=== PATIENT | female | born 1995 | race Caucasian/White ===

== ENCOUNTER 2023-08-05 20:03 | Outpatient (REF) | payer OTHER, SELFPAY ==
[2023-08-08 15:09] LABS: Age Gdln ACOG Testing Note (.); IGP, rfx Aptima HPV ASCU Note (.)
== END 2023-08-05 20:04 | disposition home or self-care (01) ==
LOC: LAB 20:03
PROVIDERS: Visit Provider Physician Assistant
DX: Z01.419 Encounter for gynecological examination (general) (routine) without abnormal findings (principal)
CPT/HCPCS: G0145

== ENCOUNTER 2024-05-02 23:44 | Emergency (ER) | payer OTHER, SELFPAY ==
[2024-05-02 23:53] VITALS: BP 120/87; PULSE 92; TEMP 36.7; O2SAT 98; BMI 26.6
--- OUTSIDE RECORDS SUMMARY | 2024-05-02 23:56 | XMS_ITS | CCD ---
Author Organization [facility] Care Team Providers Care Field Investigator Name Role Phone ARSEN, DR JCAQUES Admitting Unavailable ARSEN, DR JACQUES Attending Unavailable REQUEST, NONE LISTED Primary Care Unavaila ble ARSEN, DR JACQUES Consulting Unavailable ZIEBER, DR FERNANDA Molina Consulting Unavailable ARSEN, DR JACQUES Admitting Unavailable ARSEN, DR JACQUES Attending Unavailable REQUEST, DR FLYNN LISTED Primary Care Unavaila ble ARSEN, DR JACQUES Consulting Unavailable ARSEN, DR JACQUES Admitting Unavailable ARSEN, DR JACQUES Attending Unavailable REQUEST, DR FLYNN LISTED Primary Care Unavaila ble ARSEN, DR JACQUES Consulting Unavailable ARSEN, DR JACQUES Admitting Unavailable ARSEN, DR JACQUES Attending Unavailable REQUEST, DR FLYNN LISTED Primary Care Unavaila ble ARSEN, DR JACQUES Consulting Unavailable ARSEN, DR JACQUES Admitting Unavailable ARSEN, DR JACQUES Attending Unavailable REQUEST, NONE LISTED Primary Care Unavaila ble ARSEN, DR JACQUES Consulting Unavailable ZIEBER, DR FERNANDA Molina Consulting Unavailable ARSEN, DR JACQUES Admitting Unavailable ARSEN, DR JACQUES Attending Unavailable REQUEST, NONE LISTED Primary Care Unavaila ble ARSEN, DR JACQUES Consulting Unavailable ARSEN, DR JACQUES Procedure Practitioner Unavailab le ARSEN, DR JACQUES Admitting Unavailable ARSEN, DR JACQUES Attending Unavailable REQUEST, NONE LISTED Primary Care Unavaila ble KARASIK, DR OLGUIN Admitting Unavailable KARASIK, DR OLGUIN Attending Unavailable REQUEST, NONE LISTED Primary Care Unavaila ble KARASIFiona, DR OLGUIN Consulting Unavailable [place] Primary Care Physician LESLIE RUSSELL Attending Unavailable LESLIE RUSSELL Attending Unavailable YVONNE, LESLIE Attending Unavailable YVONNE, LESLIE Attending Unavailable YVONNE, LESLIE Attending Unavailable YVONNE, LESLIE Attending Unavailable YVONNE, LESLIE L Attending Unavailable YVONNE, LESLIE L Admitting Unavailable Stoney Prescott Attending Unavailable Edvin Engel Attending Unavailable Georgie LOYOLA Referring Unavailable Georgie LOYOLA R Attending Unavailable Georgie LOYOLA R Admitting Unavailable DO Wilfrid Reilly Attending Unavailable Medications Current Medications Medication Drug Class(es) Dates Sig (Normalized) Sig (Original) brompheniramine maleate 0.4 mg/ml / dextromethorphan hydrobromide 2 mg/ml / pseudoephedrine hydrochloride 6 mg/ml oral solution (2 sources) alpha-Adrenergic Agonist, Uncompetitive Y-wgmdjb-I-aspartat e Receptor Antagonist, Sigma-1 Agonist Start: 07-20-2023 take 5 mL by mouth four times daily Bromfed DM oral syrup 5 mL, Oral, QID for cold symptoms, 200 mL, Refill(s) 0, [facility], 162, cm, 07/20/23 13:30:00 EST, Height/Length Dosing, 89.7, kg, 07/20/23 13:30:00 EST, Weight Dosing Start Date: 07/20/23 Status: Ordered citalopram 40 mg oral tablet (4 sources) Serotonin Reuptake Inhibitor Start: 11-11-2022 take 1 tablet by mouth once daily CeleXA 40 mg Tab 40 mg = 1 tab(s), Oral, Daily, Refills(s) 0 Start Date: 11/11/22 Status: Ordered ibuprofen 800 mg oral tablet (1 source) Nonsteroidal Anti-inflammatory Drug Start: 07-22-2022 take 1 tablet by mouth every eight hours as needed for pain ibuprofen 800 mg Tab 800 mg = 1 tab(s), Oral, q8hr, PRN as needed for pain, # 21 tab(s), Refills(s) 0, Pharmacy: [facility], 160, cm, 07/22/22 19:15:00 EST, Height/Length Dosing, 75, kg, 07/22/22 19:15:00 EST, Weight Dosing Start Date: 07/22/22 Status: Ordered ondansetron 4 mg disintegrating oral tablet (2 sources) Serotonin-3 Receptor Antagonist Start: 07-22-2022 take 1 tablet by mouth every six hours as needed for nausea ondansetron 4 mg Dis Tab 4 mg = 1 tab(s), Oral, q6hr, PRN Nausea/Vomiting, # 10 tab(s), Refills(s) 0, Pharmacy: [facility], 160, cm, 07/22/22 19:15:00 EST, Height/Length Dosing, 75, kg, 07/22/22 19:15:00 EST, Weight Dosing Start Date: 07/22/22 Status: Ordered Start: 02-05-2021 take 1 tablet by kingsley th four times daily as needed for nausea Zofran ODT 4 mg Tab 4 mg = 1 tab(s), Oral, QID, PRN Nausea/Vomiting, # 12 tab(s), Refills(s) 0 Start Date: 02/05/21 Status: Ordered penicillin v potassium 500 mg oral tablet (1 source) Start: 11-11-2022 End: 11-21-2022 take 1 tablet by mouth twice daily penicillin V potassium 500 mg Tab 500 mg = 1 tab(s), Oral, BID, X 10 day(s), # 20 tab(s), Refills(s) 0, Pharmacy: [facility], 160, cm, 11/11/22 14:23:00 EST, Height/Length Dosing, 78.9, kg, 11/11/22 14:23:00 EST, Weight Dosing Start Date: 11/11/22 Stop Date: 11/21/22 Status: Ordered predniSONE 50 mg oral tablet (1 source) Start: 07-20-2023 End: 07-27-2023 take 1 tablet by mouth once daily predniSONE 50 mg Tab 50 mg = 1 tab(s), Oral, Daily, X 7 day(s), # 7 tab(s), Refills(s) 0, Pharmacy: [facility], 162, cm, 07/20/23 13:30:00 EST, Height/Length Dosing, 89.7, kg, 07/20/23 13:30:00 EST, Weight Dosing Start Date: 07/20/23 Stop Date: 07/27/23 Status: Ordered Completed/Discontinued Medications Medication Drug Class(es) Dates Sig (Normalized) Sig (Original) naproxen 500 mg oral tablet (1 source) Nonsteroidal Anti-inflammatory Drug Start: 01-24-2021 take 1 tablet by mouth twice daily naproxen 500 mg Tab 500 mg = 1 tab(s), Oral, BID, Take one tab by mouth two times a day, # 14 tab(s), Refills(s) 0, Pharmacy: [facility], 163, cm, 01/24/21 16:44:00 EDT, Height/Length Dosing, 77.5, kg, 01/24/21 16:44:00 EDT, Weight Dosing Start Date: 01/24/21 Status: Ordered Problems Active Problems Problem Classification Problem Date Documented Date Episodic/Chronic Abdominal pain (1 source) Abdominal pain; Translations: [Unspecified abdominal pain] Onset: 01-07-2024 Episodic Anxiety disorders (1 source) Anxiety disorder, unspecified; Translations: [ANXIETY DISORDER UNSPECIFIED] Onset: 02-20-2022 Chronic Chronic obstructive pulmonary disease and bronchiectasis (1 source) Bronchitis; Translations: [Bronchitis, not specified as acute or chronic] Onset: 07-20-2023 Episodic Headache; including migraine (6 sources) Migraine; Translations: [Migraine, unspecified, not intractable, without status migrainosus] Onset: 07-22-2022 Chronic Intestinal infection (5 sources) Clostridioides difficile infection 04-21-2014 Episodic Menstrual disorders (4 sources) Irregular menstruation, unspecified; Translations: [IRREGULAR MENSTRUATION UNSPECIFIED] Onset: 08-10-2021 Chronic Nausea and vomiting (1 source) Nausea; Translations: [Nausea] Onset: 07-22-2022 Episodic OB-related trauma to perineum and vulva (1 source) Other specified trauma to perineum and vulva; Translations: [OTHER SPEC TRAUMA PERINEUM AND VULVA] Onset: 02-20-2022 Episodic Other complications of ; puerperium affecting management of mother (1 source) Other mental disorders complicating childbirth; Translations: [OTH MENTAL D/O COMP CHILDBIRTH] Onset: 02-20-2022 Episodic Other complications of (2 sources) Other mental disorders complicating , third trimester; Translations: [OTH MENTAL D/O COMP PREG THIRD TRI] Onset: 02-12-2022 Episodic Other complications of (4 sources) Other specified related conditions, third trimester; Translations: [OTH SPEC PREG RELATED COND 3RD TRI] Onset: 11-29-2021 Episodic Other complications of (5 sources) Maternal tobacco use 05-12-2020 Episodic Other nutritional; endocrine; and metabolic disorders (4 sources) Body mass index 30+ - obesity 11-11-2022 Chronic Other and delivery including normal (5 sources) Single live ; Translations: [Encounter for supervision of normal , unspecified, second trimester] Onset: 10-04-2021 Episodic Other screening for suspected conditions (not mental disorders or infectious disease) (9 sources) Encounter for screening for Streptococcus B; Translations: [Encounter for screening for diabetes mellitus] Onset: 10-31-2021 Episodic Other upper respiratory disease (2 sources) Pain in throat 07-20-2023 Episodic Other upper respiratory infections (5 sources) Streptococcal sore throat; Translations: [Streptococcal pharyngitis] Onset: 11-11-2022 Episodic Residual codes; unclassified (1 source) 39 weeks gestation of ; Translations: [39 WEEKS GESTATION OF ] Onset: 02-20-2022 Episodic Residual codes; unclassified (1 source) Unspecified blood type, Rh negative; Translations: [UNSPECIFIED BLOOD TYPE RH NEGATIVE] Onset: 12-01-2021 Episodic Residual codes; unclassified (1 source) 28 weeks gestation of ; Translations: [28 WEEKS GESTATION OF ] Onset: 12-01-2021 Episodic Screening and history of mental health and substance abuse codes (1 source) Personal history of nicotine dependence; Translations: [PERSONAL HISTORY OF NICOTINE DEPEND] Onset: 02-20-2022 Episodic Substance-related disorders (5 sources) Smoker 02-21-2015 Chronic Comment on above: Added secondary to d ocumentation in Social History. Unclassified (1 source) CONTACT W/AND (SUSP) EXPOS COVID-19; Translations: [CONTACT W/AND (SUSP) EXPOS COVID-19] Onset: 02-20-2022 Urinary tract infections (5 sources) Lower urinary tract infectious disease 04-21-2014 Episodic Past or Other Problems Problem Classification Problem Date Documented Date Episodic/Chronic Immunizations and screening for infectious disease (2 sources) Encounter for screening for infections with a predominantly sexual mode of transmission; Translations: [Encounter for screening for human papillomavirus (HPV)] Onset: 10-31-2021 Episodic Other female genital disorders (4 sources) Other specified noninflammatory disorders of vagina; Translations: [OTH SPEC NONINFLAMMATORY D/O VAGINA] Onset: 10-30-2021 Episodic Unclassified (10 sources) Onset: 07-10-2015 Resolved: 08-15-2020 05-12-2016 Results Test Name Value Interpretation Reference Range Facility C Urineon 01-09-2024 Bacteria identified Cx Nom (U) Microbiology PROCEDURE: Urine Culture [R1] SOURCE: U CleanCatch BODY SITE: COLLECTED DATE/TIME: 01/07/2024 22:06 EDT RECEIVED DATE/TIME: 01/07/2024 22:48 EDT START DATE/TIME: 01/07/2024 22:48 EDT FREE TEXT SOURCE: Stoney Prescott DO, DO, Noah S. FINAL REPORTS Final Report [] Verified Date/Time: 01/09/2024 08:58 EDT 1,000 cfu/ml Mixed skin contaminants Performing Locations R1: This test was performed at: [facility], [address] [place] [address], [employer] , , [facility] Comment on above: Performed By: #### 2 [id number] ####[facility] [id number] [place] [address] CT Abdomen/Pelvis w/ Contras ton 01-08-2024 CT Abdomen/Pelvis w/ Contrast Exam Date/Time: 01/07/2024 22:50 EDT Reason for Exam: Abdominal pain, acute, nonlocalized;Other (please specify) Report IMPRESSION: APPROXIMATELY 2.5 CM PROBABLE LEFT CORPUS LUTEUM CYST. TRACE LOW-DENSITY FREE FLUID IN THE PELVIS, WHICH IS PROBABLY REACTIVE/PHYSIOLOGIC . NO OTHER FINDINGS OF CONCERN IDENTIFIED. EXAM: CT Abdomen/Pelvis w/ Contrast DATE: 01/07/2024 10:32 PM CLINICAL HISTORY: Abdominal pain, acute, nonlocalized. COMPARISON: None available. TECHNIQUE: Spiral imaging was obtained of the abdomen and pelvis after the uneventful infusion of approximately 100 mL of Isovue [address] scans at this facility use dose modulation, iterative reconstruction, and/or weight based dosing when appropriate to reduce radiation dose to as low as reasonably achievable. Unless otherwise stated, incidental findings identified in this report do not require routine follow-up imaging. FINDINGS: Liver: No enlargement, significant fatty infiltration, suspicious mass or lesion. Biliary: The gallbladder is unremarkable. No abnormal biliary ductal dilatation. Pancreas: No mass, organized fluid collection, or abnormal pancreatic ductal dilatation. Spleen: Unremarkable. Adrenals: Unremarkable. Kidneys: No hydronephrosis, significant urinary tract calculi, or suspicious mass. GI tract: No abnormal dilation or wall thickening. Normal appendix. Lymph nodes: No pathologically enlarged lymph nodes. Mesentery/peritoneum : No ascites or mass. Retroperitoneum: No inflammatory changes or mass. Pelvis: Approximately 2.5 x 1.5 cm crenulated left ovarian cyst. Trace low-density free fluid in the pelvis. IUD within an otherwise unremarkable-appeari ng uterus. The right adnexa and urinary bladder are unremarkable. No inflammatory changes or suspicious mass. Vasculature: No aneurysm or dissection. Musculoskeletal: No acute osseous findings. Lower thorax: Noncontributory. Report Ordering Provider: Stoney Prescott FINAL REPORT Dictated: 01/08/2024 10:15 am Jeff Sanchez MD Signed (Electronic Signature): 01/08/2024 10:15 am Signed by: Jeff Sanchez MD Transcribed by: MICHAEL Technologist: ALEJANDRINA Technical Comments GFR (mL/min/1/73m2) n/a age Contrast: Isovue 300 Contrast amount in ml's: 100 Rectal Contrast Given? No Normal [facility] Discharge Instructionson Discharge Instructions [id number] #[id number] Normal [facility] ED Clinical Summaryon 2023 ED Clinical Summary [place] [id number] ED Clinical Summary Person Information Name: CAITLYN SCHRADER/[facility] Age: 28 Years : 1995 Sex: Female Language: Ethiopian PCP: Leslie Lake DO Marital Status: Single Phone: [phone] Visit Id: Visit Reason: Abdominal pain; RT SIDE PAIN Speciality: Acuity: 3 Enc Type: Emergency Med Service: Emergency Arrival: 01/07/2024 20:54:35 Discharge: 01/07/2024 23:44:32 LOS: 000 02:50 Checkin: 01/07/2024 20:54:35 Checkout: 01/07/2024 23:44:32 Dispo Type: Home (Routine DC) EVENTS: Event Name Event Status Request Date/Time Start Date/Time Complete Date/Time Arrive Complete 01/07/2024 20:54:35 01/07/2024 20:54:35 01/07/2024 20:54:35 Document Home Meds Request 01/07/2024 20:54:35 Triage Complete 01/07/2024 20:54:35 01/07/2024 21:06:21 01/07/2024 21:06:21 Registration Complete 01/07/2024 20:57:49 01/07/2024 20:57:49 01/07/2024 20:57:49 Reg Complete Request 01/07/2024 20:57:49 Reg Bed Request Complete 01/07/2024 20:57:49 01/07/2024 20:57:49 01/07/2024 20:57:49 Bed Assign Complete 01/07/2024 21:02:59 01/07/2024 21:02:59 01/07/2024 21:02:59 Dr Exam Complete 01/07/2024 21:02:59 01/07/2024 21:15:35 01/07/2024 21:15:35 RN Exam Complete 01/07/2024 21:02:59 01/07/2024 21:20:16 01/07/2024 21:20:16 Isolation Screening Request 01/07/2024 21:06:22 Pending Labs Complete 01/07/2024 21:10:18 01/07/2024 22:30:08 Lab Complete 01/07/2024 21:10:18 01/07/2024 22:28:11 Patient Care Complete 01/07/2024 21:10:18 01/07/2024 22:18:07 Urine Collect Complete 01/07/2024 21:10:18 01/07/2024 22:28:11 Registration Complete 01/07/2024 21:15:35 01/07/2024 22:11:14 01/07/2024 22:11:14 Meds Admin Complete 01/07/2024 21:18:26 01/07/2024 21:53:25 CT Complete 01/07/2024 21:18:26 01/07/2024 22:32:31 01/07/2024 22:50:07 Pending Labs Complete 01/07/2024 21:27:21 01/07/2024 21:27:21 01/07/2024 21:51:44 Lab Complete 01/07/2024 21:27:21 01/07/2024 21:27:21 01/07/2024 21:51:44 Pending Labs Complete 01/07/2024 21:27:39 01/07/2024 21:27:39 01/07/2024 21:27:39 Pending Labs Inlab 01/07/2024 22:30:09 01/07/2024 22:30:09 Lab Inlab 01/07/2024 22:30:09 01/07/2024 22:30:09 Meds Admin Complete 01/07/2024 23:34:30 01/07/2024 23:42:35 Discharge Complete 01/07/2024 23:38:32 01/07/2024 23:44:37 01/07/2024 23:44:37 Transfer Complete 01/07/2024 23:44:37 01/07/2024 23:44:37 01/07/2024 23:44:37 ADDRESS: [address] [facility] [id number] PHYS DOC NOTES: MEDICAL INFORMATION: Prescriptions Given: Medications to Continue with No Changes Other Medications brompheniramine/dext romethorphan/PSE (Bromfed DM oral syrup) 5 Milliliter By Mouth 4 times a day as needed for cold symptoms. Refills: 0. PATIENT EDUCATION INFORMATION: Instructions: Abdominal Pain, Adult Follow up: With: Address: When: Leslie Maria, [address] [place] [address] Business (1) In 3 days DIAGNOSIS: AP (abdominal pain) Normal [facility] ED Note-Physicianon 05-01-20 24 ED Note-Physician Basic Information Time Seen: Stoney Prescott DO 01/07/2024 21:15 Chief Complaint Pt arrives to ed with c/o right sided pain that started approx an hour ago. History of Present Illness HPI: Patient is a 28-year-old female with past medical history of migraines who presents the ED for abdominal pain. Patient states this for started approximately 1 hour ago and has been constant since that time. She states that it is in the right side of her abdomen both the upper and lower aspects. She states that she feels bloated with this. She states that just now she is starting to become nauseous and also is breaking out into a sweat with chills. She denies any change in bowel movements. She denies any urinary symptoms. She has never had anything like this in the past. ROS: Pertinent review of systems conducted and is negative except as noted above. Physical exam: General: Mildly diaphoretic but in no distress HEENT: Mucous membranes moist Neuro: awake and alert Neck: supple, trachea midline Card: Heart regular rate and rhythm no murmur Resp: Lungs clear to auscultation no wheeze or rhonchi Abd: Soft and nondistended. Right upper quadrant and right lower quadrant tenderness without rebound or guarding. No CVA tenderness. Ext: No gross deformity or edema Physical Exam Vitals & Measurements T: 37.1 ?C(Tympanic) HR: 105(Peripheral) RR: 16 BP: 117/87 SpO2: 98% HT: 160.02 cm WT: 69.3 kg BMI: 27.06 Medical Decision Making MEDICAL DECISION MAKING Number and Complexity of Problems Differential Diagnosis: [] [facility] Data External documents reviewed: N/A My EKG interpretation: Noted in chart if applicable My CT interpretation: N/A My X-ray interpretation: Noted in chart if applicable My Ultrasound interpretation: N/A Decision rules/scores evaluated: N/A Discussed with: N/A Treatment and Disposition ED Course: Patient is mildly diaphoretic but an overall nontoxic-appearing. She has tenderness in her right upper and lower abdomen without peritonitis. Will obtain a CT of the abdomen pelvis as well as workup and give her a dose of Toradol for comfort as well as Zofran for nausea. Blood work is overall reassuring. Urine shows no overt sign of infection. CT of the abdomen pelvis shows trace pelvic fluid is nonspecific but may reflect rupture of an ovarian cyst or follicle. A peripherally enhancing left-sided corpus luteal cyst measures 2.5 cm. The solid organs demonstrate no acute findings. Equivocal mild intrahepatic biliary ductal dilation noted without common bile duct dilation. Would recommend correlation with symptoms and bilirubin levels. The pattern of hypodensity is more compatible with biliary ductal dilation and periportal edema. Normal gallbladder. No evidence for appendicitis. On examination the patient is feeling better. We discussed the results of her lab work and imaging. At this time I feel she is stable for discharge with close follow-up with her primary care physician. We discussed return precautions. Patient was discharged stable condition. Shared decision making: As above Code status: N/A Assessment/Plan AP (abdominal pain) (R10.9: Unspecified abdominal pain) Orders: ketorolac, 15 mg = 1 mL, Injection, IV Push, Once, Stop date 01/07/24 21:17:00 EDT, STAT, Start date 01/07/24 21:17:00 EDT, 01/07/24 21:17:00 EDT ketorolac, 15 mg = 1 mL, Injection, IV Push, Once, Stop date 01/07/24 23:34:00 EDT, STAT, Start date 01/07/24 23:34:00 EDT, 01/07/24 23:34:00 EDT ondansetron, 4 mg = 2 mL, Injection, IV Push, Once, Stop date 01/07/24 21:17:00 EDT, STAT, Start date 01/07/24 21:17:00 EDT, 01/07/24 21:17:00 EDT Sodium Chloride 0.9% intravenous solution, 1,000 mL, Soln-IV, IV, Once, Stop date 01/07/24 21:17:00 EDT, STAT, Start date 01/07/24 21:17:00 EDT, Infuse over 61, minute(s) Basic Metabolic Panel CBC w/ Auto Diff CT Abdomen/Pelvis w/ Contrast eGFR Extra Blue Tube Hepatic Function Panel Lipase Level Saline Lock Insert U Beta Hcg Qual UA with Cult Rflx Urine Culture Medications Administered Given NS 1000 ml Bolus, 1000 mL, IV Disposition Plan Discharge Prescription List Prescriptions No active prescription medications Follow-up With When Contact Information Leslie [place] In 3 days [address] [place] [address]- Business (1) Additional Instructions: Patient Education Abdominal Pain, Adult Problem List/Past Medical History Ongoing Blood type, Rh negative BMI 30.0-30.9,adult Smoker Strep throat UTI (lower urinary tract infection) Historical MIGRAINE Procedure/Surgical History Extraction of wisdom tooth. Medications Inpatient ketorolac 15 mg/mL Inj, 15 mg= 1 mL, IV Push, Once NS 1000 ml Bolus, 1000 mL, IV, Once Zofran 4 mg/2 mL Injection, 4 mg= 2 mL, IV Push, Once Home Bromfed DM oral syrup, 5 mL, Oral, QID, PRN CeleXA 40 mg Tab, 40 mg= 1 tab(s), Oral, Daily Allergies No Known Allergies Social (more content not included)... Normal [facility] Comment on above: Result Comment: Elec tronically Signed By: Stoney Prescott DO\.br\Date and Time Signed: 01/07/24 23:38 EDT ED Patient Education Noteon 01-08-2024 ED Patient Education Note Gastroenterology Abdominal Pain, Adult Pain in the abdomen (abdominal pain) can be caused by many things. Often, abdominal pain is not serious and it gets better with no treatment or by being treated at home. However, sometimes abdominal pain is serious. Your health care provider will ask questions about your medical history and do a physical exam to try to determine the cause of your abdominal pain. Follow these instructions at home: Medicines ? Take nqbc-gjk-lfypzax and prescription medicines only as told by your health care provider. ? Do not take a laxative unless told by your health care provider. General instructions ? Watch your condition for any changes. ? Drink enough fluid to keep your urine pale yellow. ? Keep all follow-up visits as told by your health care provider. This is important. Contact a health care provider if: ? Your abdominal pain changes or gets worse. ? You are not hungry or you lose weight without trying. ? You are constipated or have diarrhea for more than 2?3 days. ? You have pain when you urinate or have a bowel movement. ? Your abdominal pain wakes you up at night. ? Your pain gets worse with meals, after eating, or with certain foods. ? You are vomiting and cannot keep anything down. ? You have a fever. ? You have blood in your urine. Get help right away if: ? Your pain does not go away as soon as your health care provider told you to expect. ? You cannot stop vomiting. ? Your pain is only in areas of the abdomen, such as the right side or the left lower portion of the abdomen. Pain on the right side could be caused by appendicitis. ? You have bloody or black stools, or stools that look like tar. ? You have severe pain, cramping, or bloating in your abdomen. ? You have signs of dehydration, such as: ? Dark urine, very little urine, or no urine. ? Cracked lips. ? Dry mouth. ? Sunken eyes. ? Sleepiness. ? Weakness. ? You have trouble breathing or chest pain. Summary ? Often, abdominal pain is not serious and it gets better with no treatment or by being treated at home. However, sometimes abdominal pain is serious. ? Watch your condition for any changes. ? Take scph-zuw-dzegfil and prescription medicines only as told by your health care provider. ? Contact a health care provider if your abdominal pain changes or gets worse. ? Get help right away if you have severe pain, cramping, or bloating in your abdomen. This information is not intended to replace advice given to you by your health care provider. Make sure you discuss any questions you have with your health care provider. Document Revised: 10/14/2020 Document Reviewed: 01/04/2020 [employer] Patient Education ? 2022 [employer] Normal [facility] ED Patient Summaryon 024 ED Patient Summary [place] [id number] Patient Discharge Instructions Person Information Name: CAITLYN SCHRADER Age: 28 Years Arrival Date: 01/07/2024 20:54:35 Discharge Diagnosis: AP (abdominal pain) Primary Care Physician: Leslie [place] DO Provider Information Primary Provider: Stoney Prescott DO Advanced Cripple Worker:None The exam and treatment you received in the Emergency Department were for an urgent problem and are not intended as complete care. It is important that you follow up with a doctor, nurse practitioner, or physician?s gallery assistant for ongoing care. If your symptoms become worse or you do not improve as expected and you are unable to reach your usual health care provider, you should return to the Emergency Department. We are available 24 hours a day. CAITLYN SCHRADER has been given the following list of patient education materials, prescriptions and follow-up instructions: Follow-up Instructions: With: Address: When: [place] [address], [facility] C, [facility] [address] [place] [address] [facility] (1) In 3 days In the event that this physician does not participate in your insurance network, please consult with your insurance company to find a nearby participating provider. Patient Education Materials: Abdominal Pain, Adult A MESSAGE TO ALL PATIENTS REGARDING OPIOIDS PRESCRIPTION OPIOIDS: WHAT YOU NEED TO KNOW Prescription opioids can be used to help relieve himprfch-sg-szajlz pain and are often prescribed following a surgery or injury, or for certain health conditions. These medications can be an important part of the treatment but also come with serious risks. It is important to work with your healthcare provider to make sure you are getting the safest, most effective care. WHAT ARE THE RISKS AND SIDE EFFECTS OF OPIOID USE? Prescription opioids carry serious risks of addiction and overdose, especially with prolonged use. An opioid overdose, often marked by slowed breathing, can cause sudden . The use of prescription opioids can have a number of side effects as well, even when taken as directed: ? Tolerance?meaning you might need to take more of the medication for the same pain relief ? Physical dependence?meaning you have symptoms of withdrawal when a medication is stopped ? Increased sensitivity to pain ? Constipation ? Nausea, vomiting, and dry mouth ? Sleepiness and dizziness ? Confusion ? Depression ? Low levels of testosterone that can result in lower sex drive, energy, and strength ? Itching and sweating RISKS ARE GREATER WITH: ? History of drug misuse, substance use disorder, or overdose ? Mental health conditions (such as depression or anxiety) ? Sleep apnea ? Older age (65 years and older) ? Avoid alcohol while taking prescription opioids. Also, unless specifically advised by your health care provider, medications to avoid include: ? Benzodiazepines (such as Xanax or Valium) ? Muscle relaxants (such as Soma or Flexeril) ? Hypnotics (such as Ambien or Lunesta) ? Other prescription opioids KNOW YOUR OPTIONS Talk to your health care provider about ways to manage your pain that don?t involve prescription opioids. Some of these options may actually work better and have fewer risks and side effects. Options may include: ? Pain relievers such as acetaminophen, ibuprofen, and naproxen ? Some medication that are also used for depression or seizures ? Physical therapy and exercise ? Cognitive behavioral therapy, a psychological, goal-directed approach, in which patients learn how to modify physical, behavioral, and emotional triggers of pain and stress. IF YOU ARE PRESCRIBED OPIOIDS FOR PAIN: ? Never take opioids in greater amounts or more often than prescribed. ? Follow up with your primary health care provider. o Work together to create a plan on how to manage your pain. o Talk about ways to help manage your pain that don?t involve prescription opioids. o Talk about any and all concerns and side effects. ? Help prevent misuse and abuse o Never sell or share prescription opioids. o Never use another person?s prescription opioids. ? Store prescription opioids in a secure place and out of reach of others (this may include visitors, children, friends, and family). ? Safely dispose of unused prescription opioids: Find your community drug take-back program or your pharmacy mail-back program, or flush them down the toilet, following guidance from the Food and Drug Administration (www.fda.gov/Drugs/R esourcesForYou). ? Visit www.cdc.gov/drugover dose to learn about the risks of opioids abuse and overdose. ? If you believe you may be struggling with addiction, tell your health daycare provider and ask for guidance or call [facility] National Helpline at 6-498-422-HELP. v Source: [place] Department of Health (more content not included)... Normal [facility] RAD - Preliminary Cat Scan R eporton 01-08-2024 RAD - Preliminary Cat Scan Report [id number] #1.00TIFF Normal [facility] U BetaHcg Qualon 01-08-2024 HCG.beta subunit (U) [Moles/Vol] Negative Normal [facility] Comment on above: Performed By: #### 2 519809, [id number], [id number] ####[facility] [address] [place] [address] UA with Cult Rflxon 01-08-20 24 Bilirubin Ql (U) Negative Normal Negative [facility] Comment on above: Performed By: #### 2 903352, 86377165, [id number] ####[facility] [address] [place] [address] Clarity (U) Clear Normal Clear [facility] Comment on above: Performed By: #### 2 786489, 20749467, [id number] ####[facility] [address] [place] [address] Color (U) Light-Yellow Normal Yellow [facility] Comment on above: Result Comment: Micr oscopic readings are only performed on those samples that meet specific criteria set forth by [facility] Laboratory. Performed By: #### 2 101649, 00412832, [id number] ####[place] [id number] Epithelial cells.squamous Auto (Urine sed) [#/Area] 5-8 Abnormal 0-2 [facility] Comment on above: Performed By: #### 2 024927, 64061233, [id number] ####[facility] [address] [place], [place] [address] Glucose Ql (U) Negative Normal Negative [facility] Comment on above: Performed By: #### 2 930273, 48183619, [id number] ####[facility] [address] [place] [address] Hemoglobin Auto test strip (U) [Mass/Vol] Negative Normal Negative [facility] Comment on above: Performed By: #### 2 249867, 05553934, [id number] ####[address] [address] Ketones Auto test strip Ql (U) Trace Abnormal Negative [facility] Comment on above: Performed By: #### 2 304576, 92138246, [id number] ####[address] [address] Leukocyte esterase Auto test strip Ql (U) 25 Erica/uL Normal Negative [facility] Comment on above: Performed By: #### 2 869718, 79110663, [id number] ####[facility] [address] [place] [address] Mucus Auto Ql (U) Trace Normal Negative [facility] Comment on above: Performed By: #### 2 049090, 71819452, [id number] ####[facility] [address] [place] [address] Nitrite Auto test strip Ql (U) Negative Normal Negative [facility] Comment on above: Performed By: #### 2 392120, 03362852, [id number] ####[address] [address] pH (U) 7.0 [pH] Invalid Interpretation Code 5.0-9.0 [facility] Comment on above: Performed By: #### 2 148238, 07571660, [id number] ####[facility] [address] [place] [address] Protein Ql (U) Trace Abnormal Negative [facility] Comment on above: Performed By: #### 2 556145, 56822545, [id number] ####[facility] [address] [place] [address] RBC Ql (U) 0-3 Normal 0-3 [facility] Comment on above: Performed By: #### 2 275616, 82805540, [id number] ####[facility] [address] [place], [place] [address] Specific gravity (U) [Rel density] 1.024 Invalid Interpretation Code 1.005-1.030 [facility] Comment on above: Performed By: #### 2 446401, 02683693, [id number] ####[facility] [address] [place] [address] Urobilinogen (U) [Mass/Vol] Negative Normal Negative [facility] Comment on above: Performed By: #### 2 684735, 78351615, [id number] ####[facility] [address] [place] [address] WBC Auto (Urine sed) [#/Area] 6-15 Abnormal 0-5 [facility] Comment on above: Performed By: #### 2 659012, 67760107, [id number] ####[facility] [address] [place] [address] BMPon 01-07-2024 Anion gap [Moles/Vol] 15 mmol/L Normal 6-16 [facility] Comment on above: Performed By: #### 2 575422, 6139437, 28969778, 5997403, 6785472 ####[facility] [address] [place] [address] Calcium [Mass/Vol] 9.4 mg/dL Normal 8.9-11.1 [facility] Comment on above: Performed By: #### 2 205856, 3889582, 01217183, 1877269, 9326754 ####[facility] [address] [place] [address] Chloride [Moles/Vol] 104 mmol/L Normal 101-111 [facility] Comment on above: Performed By: #### 2 652245, 2691279, 27506368, 2975240, 9045214 ####[facility] [address] [place] [address] CO2 [Moles/Vol] 22 mmol/L Normal 21-31 [facility] Comment on above: Performed By: #### 2 621218, 7665991, 73725744, 6423494, 4269286 ####[facility] [address] [place] [address] Creatinine [Mass/Vol] 0.6 mg/dL Normal 0.5-1.3 [facility] Comment on above: Performed By: #### 2 543771, 9941884, 28574541, 1087151, 7530332 ####[facility] [address] [place] [address] Glucose [Mass/Vol] 88 mg/dL Normal 55-199 [facility] Comment on above: Performed By: #### 2 602242, 0927045, 22570736, 8429316, 7292742 ####[facility] [address] [place] [address] Potassium [Moles/Vol] 3.9 mmol/L Normal 3.5-5.3 [facility] Comment on above: Performed By: #### 2 078599, 3760168, 58617386, 2157137, 6461928 ####[facility] [address] [place] [address] Sodium [Moles/Vol] 137 mmol/L Normal 135-145 [facility] Comment on above: Performed By: #### 2 672530, 7117541, 94207883, 5017790, 2655051 ####[facility] [address] [place] [address] Urea nitrogen [Mass/Vol] 15 mg/dL Normal 5-21 [facility] Comment on above: Performed By: #### 2 027956, 1819266, 98964410, 5181600, 7912988 ####[facility] [address] [place] [address] Urea nitrogen/Creatinine [Mass ratio] 25 No Units High 10-20 [facility] Comment on above: Performed By: #### 2 830252, 4740274, 67665168, 4553355, 2186484 ####[facility] [address] [place] [address] CBC w/ Auto Diffon 4 Basophils/100 WBC (Bld) 0.3 % Normal 0.0-2.0 [facility] Comment on above: Performed By: #### 2 716760, 4755582, 12508122, 7871647, 6198112 ####[facility] [address] [place] [address] Basophils/Leukocytes Auto (Bld) [Pure # fraction] 0.0 E9/L Normal 0.0-0.2 [facility] Comment on above: Performed By: #### 2 458645, 3528083, 23367742, 7126274, 0707916 ####[facility] [address] [place] [address] Eosinophils (Bld) [#/Vol] 0.1 E9/L Normal 0.0-0.5 [facility] Comment on above: Performed By: #### 2 047557, 1786481, 12779741, 7561916, 3540687 ####[address] [address] Eosinophils/100 WBC (Bld) 1.1 % Normal 0.0-8.0 [facility] Comment on above: Performed By: #### 2 076426, 7113582, 48859449, 8105009, 0917895 ####[address] [address] Erythrocyte distribution width (RBC) [Ratio] 13.0 % Normal 10.9-14.2 [facility] Comment on above: Performed By: #### 2 683456, 3339188, 57754066, 6091377, 3244611 ####[address] [address] Hematocrit (Bld) [Volume fraction] 39.0 % Normal 34.0-46.0 [facility] Comment on above: Performed By: #### 2 551165, 3736420, 51015530, 9110288, 1361899 ####[address] [address] Hemoglobin (Bld) [Mass/Vol] 13.2 g/dL Normal 12.0-16.0 [facility] Comment on above: Performed By: #### 2 818148, 7620155, 22747219, 9299775, 5888295 ####[address] [address] Lymphocytes (Bld) [#/Vol] 3.4 E9/L Normal 1.0-4.0 [facility] Comment on above: Performed By: #### 2 425403, 8918765, 23831762, 5698062, 3866040 ####[address] [address] Lymphocytes/100 WBC (Bld) 30.5 % Normal 14.0-50.0 [facility] Comment on above: Performed By: #### 2 699262, 4977340, 52178231, 4819090, 3010757 ####[address] [address] MCH (RBC) [Entitic mass] 29.7 pg Normal 27.0-34.0 [facility] Comment on above: Performed By: #### 2 424404, 5823852, 06058370, 6803106, 0820805 ####[address] [address] MCHC (RBC) [Mass/Vol] 33.8 g/dL Normal 31.4-36.0 [facility] Comment on above: Performed By: #### 2 839175, 3760193, 11521955, 2907494, 5037093 ####[address] [address] MCV (RBC) [Entitic vol] 87.9 fL Normal 80.0-100.0 [facility] Comment on above: Performed By: #### 2 567559, 8070648, 97196399, 0994544, 0872592 ####[address] [address] Monocytes (Bld) [#/Vol] 0.6 E9/L Normal 0.2-1.0 [facility] Comment on above: Performed By: #### 2 944630, 8605380, 17908118, 9832858, 4607001 ####[address] [address] Neutrophils (Bld) [#/Vol] 6.9 E9/L Normal 2.0-7.5 [facility] Comment on above: Performed By: #### 2 965991, 3131877, 59104843, 4622999, 9451497 ####[place] [address] [place] [address] Neutrophils/100 WBC (Bld) 62.5 % Normal 36.0-75.0 [facility] Comment on above: Performed By: #### 2 013274, 4945617, 21326891, 8776188, 2062783 ####[address] [address] Platelet mean volume (Bld) [Entitic vol] 7.3 fL Normal 6.4-10.8 [facility] Comment on above: Performed By: #### 2 219749, 1631416, 11875804, 3886094, 4897524 ####[address] [address] Platelets (Bld) [#/Vol] 343.0 E9/L Normal 150.0-500.0 [facility] Comment on above: Performed By: #### 2 028147, 7314822, 86911541, 4698147, 4788351 ####[address] [address] RBC (Bld) [#/Vol] 4.4 E12/L Normal 4.3-5.9 [facility] Comment on above: Performed By: #### 2 090840, 7476052, 19040603, 1311528, 2138727 ####[address] [address] WBC corrected for nucl RBC Auto (Bld) [#/Vol] 11.0 E9/L Normal 4.0-11.0 [facility] Comment on above: Performed By: #### 2 471613, 4684163, 82126196, 5019369, 0601819 ####[address] [address] CHEMISTRYOrdered By: SYSTEM SYSTEM on 04-30-2024 Albumin [Mass/Vol] 4.2 g/dL Normal 3.3 - 5.0 gm/dL [facility] Albumin/Globulin [Mass ratio] 1.6 {ratio} Normal 1.1 - 2.2 [facility] ALP [Catalytic activity/Vol] 70 [iU]/d Normal 21 - 98 Int._Unit/L [facility] ALT No additional P-5'-P [Catalytic activity/Vol] 13 [iU]/d Normal 6 - 46 Int._Unit/L [facility] Anion gap [Moles/Vol] 15 mmol/L Normal 6 - 16 mEq/L R emisol Chem AST [Catalytic activity/Vol] 14 [iU]/d Normal 5 - 43 Int._Unit/L [facility] Bilirubin [Mass/Vol] 0.3 mg/dL Normal 0.0 - 1 .1 mg/dL [facility] Bilirubin.direct [Mass/Vol] 0.1 mg/dL Normal 0.0 - 0.4 mg/dL [facility] Bilirubin.indirect [Mass or moles/Vol] 0.2 mg/dL Normal 0.1 - 0.9 mg/dL [facility] Calcium [Mass/Vol] 9.4 mg/dL Normal 8.9 - 11. 1 mg/dL [facility] Chloride [Moles/Vol] 104 mmol/L Normal 101 - 1 11 mmol/L [facility] CO2 [Moles/Vol] 22 mmol/L Normal 21 - 31 mmol/L [facility] Creatinine [Mass/Vol] 0.6 mg/dL Normal 0.5 - 1.3 mg/dL [facility] eGFR 126 mL/min/1.73 m2 Normal >=59mL/mi n/1. 73 m2 [facility] Globulin (S) [Mass/Vol] 2.6 g/dL Normal 1.4 - 4.0 gm/dL [facility] Glucose [Mass/Vol] 88 mg/dL Normal 55 - 199 mg/dL [facility] Lipase [Catalytic activity/Vol] 34 U/L Normal 13 - 58 unit/L [facility] Potassium [Moles/Vol] 3.9 mmol/L Normal 3.5 - 5.3 mmol/L [facility] Protein [Mass/Vol] 6.8 g/dL Normal 6.0 - 7.8 gm/dL [facility] Sodium [Moles/Vol] 137 mmol/L Normal 135 - 145 mmol/L [facility] Urea nitrogen [Mass/Vol] 15 mg/dL Normal 5 - 21 mg/dL [facility] Urea nitrogen/Creatinine [Mass ratio] 25 mg/mg High 10 - 20 [facility] Consent for Treatmenton 12-10 Consent for Treatment [id number] #1.00TIFF Normal [facility] HEMATOLOGYOrdered By: SYSTEM SYSTEM on 01-07-2024 Basophils/100 WBC (Bld) 0.3 % Normal 0.0 - 2.0 % [facility] Heme Basophils/Leukocytes Auto (Bld) [Pure # fraction] 0.0 E9/L Normal 0.0 - 0.2 E9/L [facility] Eosinophils (Bld) [#/Vol] 0.1 E9/L Normal 0.0 - 0.5 E9/L [facility] Eosinophils/100 WBC (Bld) 1.1 % Normal 0.0 - 8.0 % [facility] Erythrocyte distribution width (RBC) [Ratio] 13.0 % Normal 10.9 - 14.2 % [facility] Hematocrit (Bld) [Volume fraction] 39.0 % Normal 34.0 - 46.0 % [facility] Hemoglobin (Bld) [Mass/Vol] 13.2 g/dL Normal 12.0 - 16.0 gm/dL [facility] Lymphocytes (Bld) [#/Vol] 3.4 E9/L Normal 1.0 - 4.0 E9/L [facility] Lymphocytes/100 WBC (Bld) 30.5 % Normal 14.0 - 50.0 % [facility]e MCH (RBC) [Entitic mass] 29.7 pg Normal 27.0 - 34.0 pg [facility]e MCHC (RBC) [Mass/Vol] 33.8 g/dL Normal 31.4 - 36.0 gm/dL [facility] MCV (RBC) [Entitic vol] 87.9 fL Normal 80.0 - 100.0 fL [facility] Monocytes (Bld) [#/Vol] 0.6 E9/L Normal 0.2 - 1.0 E9/L [facility] Monocytes/100 WBC (Bld) 5.6 % Normal 4.0 - 14.0 % [facility] Neutrophils (Bld) [#/Vol] 6.9 E9/L Normal 2.0 - 7.5 E9/L [facility] Neutrophils/100 WBC (Bld) 62.5 % Normal 36.0 - 75.0 % [facility] Platelet mean volume (Bld) [Entitic vol] 7.3 fL Normal 6.4 - 10.8 fL [facility] Platelets (Bld) [#/Vol] 343.0 E9/L Normal 150.0 - 500.0 E9/L [facility] RBC (Bld) [#/Vol] 4.4 E12/L Normal 4.3 - 5.9 E12/L [facility] WBC corrected for nucl RBC Auto (Bld) [#/Vol] 11.0 E9/L Normal 4.0 - 11.0 E9/L [facility] Hep Func Panelon 01-07-2024 Albumin [Mass/Vol] 4.2 g/dL Normal 3.3-5.0 [facility] Comment on above: Performed By: #### 2 265410, 0087908, 13586872, 2623125, 4322552 ####[facility] [address] [place] [address] Albumin/Globulin (S) [Mass conc ratio] 1.6 Normal 1.1-2.2 [facility] Comment on above: Performed By: #### 2 121878, 2567722, 50954427, 0939005, 5269898 ####[facility] [address] [place] [address] ALP [Catalytic activity/Vol] 70 Int._Unit/L Normal 21-98 [facility] Comment on above: Performed By: #### 2 373622, 5753048, 25534768, 4961683, 0856398 ####[facility] [address] [place] [address] ALT No additional P-5'-P [Catalytic activity/Vol] 13 Int._Unit/L Normal 6-46 [facility] Comment on above: Performed By: #### 2 363023, 0147517, 39713612, 9828600, 4158282 ####[facility] [address] [place] [address] AST [Catalytic activity/Vol] 14 Int._Unit/L Normal 5-43 [facility] Comment on above: Performed By: #### 2 159087, 7326517, 60431772, 9896689, 4297336 ####[place] [address] [place] 0096857 Bilirubin [Mass/Vol] 0.3 mg/dL Normal 0.0-1.1 [facility] Comment on above: Performed By: #### 2 678840, 5089170, 85958944, 3646730, 7215113 ####[place] [address] Bilirubin.direct [Mass/Vol] 0.1 mg/dL Normal 0.0-0.4 [facility] Comment on above: Performed By: #### 2 227534, 4030237, 07712832, 7312850, 3627996 ####[place] [address] Bilirubin.indirect [Mass or moles/Vol] 0.2 mg/dL Normal 0.1-0.9 [facility] Comment on above: Performed By: #### 2 820292, 4315931, 63006250, 7940932, 4301046 ####[address] [address] Globulin (S) [Mass/Vol] 2.6 g/dL Normal 1.4-4.0 [facility] Comment on above: Performed By: #### 2 756986, 8213988, 64687843, 9525098, 1635104 ####[address] [address] Protein [Mass/Vol] 6.8 g/dL Normal 6.0-7.8 [facility] Comment on above: Performed By: #### 2 523005, 6855624, 56079161, 3581431, 2567481 ####[facility] [address] [place] [address] Lipase Levelon 01-07-2024 Lipase [Catalytic activity/Vol] 34 U/L Normal 13-58 [facility] Comment on above: Performed By: #### 2 582133, 3249702, 51671946, 7634818, 7668447 ####[facility] [address] [place] [address] Physician Orderon 01-07-2024 Physician Order [id number] 9#1.00TIFF Normal [facility] SEROLOGYOrdered By: Karuna amaral on 01-07-2024 HCG.beta subunit (U) [Moles/Vol] Negative Normal [facility] Man Sero UA with Cult Rflxon 01-07-20 Type of Urine collection method Clean Catch Normal [facility] Comment on above: Performed By: #### 2 936816, 73997308, [id number] ####[facility] [address] [place] [address] URINALYSISOrdered By: SYSTEM SYSTEM on 01-07-2024 Bilirubin Ql (U) Negative Normal Negativemg/dL [facility] UA Auto SS Clarity (U) Clear (01/07/24 10:06 PM) Normal Clear [facility] UA Auto SS Color (U) Light-Yellow 1 (01/07/24 10:06 PM) Normal Yellow [facility] UA Auto SS Comment on above: Interpretive Data: M icroscopic readings are only performed on those samples that meet specific criteria set forth by [facility]. Epithelial cells.squamous Auto (Urine sed) [#/Area] 5-8 graded/HPF Invalid Interpretation Code 0-2graded/HPF [facility] UA Auto SS Glucose Ql (U) Negative Normal Negativemg/dL [facility] UA Auto SS Hemoglobin Auto test strip (U) [Mass/Vol] Negative Normal Negativemg/dL [facility] UA Aut o SS Ketones Auto test strip Ql (U) Trace mg/dL Invalid Interpretation Code Negativemg/dL [facility] UA Auto SS Leukocyte esterase Auto test strip Ql (U) 25 Erica/uL Erica/uL Normal NegativeLeu/u L [facility] UA Auto SS Mucus Auto Ql (U) Trace graded/LPF Normal Negati vegrade d/LPF [facility] UA Auto SS Nitrite Auto test strip Ql (U) Negative Normal Negativemg/dL [facility] UA Auto SS pH (U) 7.0 *NA* (01/07/24 10:06 PM) Invalid Interpretation Code 5.0 - 9.0 [facility] UA Auto SS Protein Ql (U) Trace mg/dL Invalid Interpretation Code Negativemg/dL [facility] UA Auto SS RBC Ql (U) 0-3 graded/HPF Normal 0-3graded/HPF [facility] UA Auto SS Specific gravity (U) [Rel density] 1.024 *NA* (01/07/24 10:06 PM) Invalid Interpretation Code 1.005 - 1.030 [facility] UA Auto SS Urobilinogen (U) [Mass/Vol] Negative Normal Negativemg/dL FT UA Auto SS WBC Auto (Urine sed) [#/Area] 6-15 graded/HPF Invalid Interpretation Code 0-5graded/HPF [facility] UA Auto SS URINALYSISOrdered By: Stoney suh on 01-07-2024 UA Spec Desc Clean Catch (01/07/24 10:06 PM) Normal [facility] UA Auto SS eGFRon 01-07-2024 eGFR 126 mL/min/1.73 m2 Normal >=59 [facility] Comment on above: Order Comment: Order added by Discern Expert. Performed By: #### 2 847278, 5877454, 70106090, 8032815, 4695202 ####[place] [id number] [place] [address] Consent for Treatmenton 07-10 Consent for Treatment [id number] #1.00TIFF Normal [facility] Discharge Instructionson Discharge Instructions [id number] #1.00TIFF Normal [facility] ED Clinical Summaryon 2022 ED Clinical Summary [address] [address] ED Clinical Summary Person Information Name: CAITLYN SCHRADER [facility]arda/[facility] Age: 28 Years : 1995 Sex: Female Language: Ethiopian PCP: Leslie Lake DO Marital Status: Single Phone: [phone] Visit Id: Visit Reason: Throat pain - Adult; Sinus Pain/Congestion; Cough; AISSC-[id number] IAL SWELLING Speciality: Acuity: 4 Enc Type: Emergency Med Service: Emergency Arrival: 07/20/2023 13:13:21 Discharge: 07/20/2023 15:35:40 LOS: 000 02:22 Checkin: 07/20/2023 13:13:21 Checkout: 07/20/2023 15:35:40 Dispo Type: Home (Routine DC) EVENTS: Event Name Event Status Request Date/Time Start Date/Time Complete Date/Time Arrive Complete 07/20/2023 13:13:21 07/20/2023 13:13:21 07/20/2023 13:13:21 Document Home Meds Request 07/20/2023 13:13:21 Triage Complete 07/20/2023 13:13:21 07/20/2023 13:30:12 07/20/2023 13:30:12 Pending Labs Complete 07/20/2023 13:25:07 07/20/2023 13:55:56 Lab Complete 07/20/2023 13:25:07 07/20/2023 13:55:56 Swab Complete 07/20/2023 13:25:07 07/20/2023 13:53:26 Isolation Screening Request 07/20/2023 13:30:13 X-Ray Complete 07/20/2023 13:30:49 07/20/2023 13:32:28 07/20/2023 13:41:17 Wet Read Request 07/20/2023 13:41:17 Bed Assign Complete 07/20/2023 14:22:38 07/20/2023 14:22:38 07/20/2023 14:22:38 Dr Exam Complete 07/20/2023 14:22:38 07/20/2023 14:58:23 07/20/2023 14:58:23 RN Exam Complete 07/20/2023 14:22:38 07/20/2023 14:30:41 07/20/2023 14:30:41 Registration Complete 07/20/2023 14:58:23 07/20/2023 15:06:36 07/20/2023 15:06:36 Dr Exam Complete 07/20/2023 15:01:13 07/20/2023 15:01:13 07/20/2023 15:01:13 Reg Complete Request 07/20/2023 15:06:36 Reg Bed Request Complete 07/20/2023 15:06:36 07/20/2023 15:06:36 07/20/2023 15:06:36 Discharge Complete 07/20/2023 15:18:07 07/20/2023 15:35:44 07/20/2023 15:35:44 Transfer Complete 07/20/2023 15:35:44 07/20/2023 15:35:44 07/20/2023 15:35:44 ADDRESS: [address] [place] [address] [place] [phone] [facility] DOC NOTES: MEDICAL INFORMATION: Prescriptions Given: New Medications [facility], [address] [facility] [place], [place] [id number], [phone] brompheniramine/dext romethorphan/PSE (Bromfed DM oral syrup) 5 Milliliter By Mouth 4 times a day as needed for cold symptoms. Refills: 0. predniSONE (predniSONE 50 mg Tab) 1 Tablets By Mouth every day for 7 Days. Refills: 0. Medications to Continue with No Changes Other Medications citalopram (CeleXA 40 mg Tab) 1 Tablets By Mouth every day. PATIENT EDUCATION INFORMATION: Instructions: Acute Bronchitis, Adult, Zjhz-zb-Yhhm Follow up: With: Address: When: Leslie Lake [place], [place] [address], [facility] [address] [place] [address] Business (1) In 3 days 07/23/2023 Comments: Follow-up with your primary care provider in 3 to 5 days. If symptoms worsen, do not improve, or new symptoms arise please report back to emergency department for further evaluation. DIAGNOSIS: Bronchitis Normal [facility] ED Note-Physicianon 07-20-20 ED Note-Physician Basic Information Time Seen: Geraldo Vance PA-C. 07/20/2023 14:58 Chief Complaint cough for 3 weeks. previous doctor said she had bronchitis, but no xray or fever. has been on steroids and augmentin History of Present Illness 28-year-old female reports emerged department with chief complaint of a cough that is been going on for 3 weeks now. Reports that she was previously told that she had bronchitis, but did not have an x-ray or fever. Reports that she is still been coughing, even though she has finished steroids, just finished up her Augmentin. States that she just went to get checked out. 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 She states that she does not have any chest pain or shortness of breath. Reports that she does have a history of smoking which she still does. States that she is just not getting any better when to get checked out. Review of Systems A 10 point review of systems is negative except as noted above. Medical and Surgical History: Reviewed and noted Social history: Lives at home Family History: Reviewed. Tobacco: User Physical Exam Vitals & Measurements T: 37.1 ?C(Oral) HR: 87(Peripheral) RR: 18 BP: 142/83 SpO2: 97% HT: 162 cm WT: 89.7 kg BMI: 34.18 General: The patient appears well and in no apparent distress. Patient is resting comfortably in chair. Afebrile Skin: Warm, dry, no pallor noted. Head: Normocephalic, atraumatic Neck: No JVD Eye: PERRLA, EOMI ENT: Moist mucus membranes. Pharynx pink moist no erythema or exudates. Bilateral TMs intact with no erythema or bulging Cardiovascular: Regular rate normal peripheral perfusion Respiratory: No respiratory distress no accessory muscle use no obvious audible wheezing. Lungs auscultation clear to Chest Wall: no deformity Musculoskeletal: normal ROM, no deformity, no swelling GI: No obvious distention soft nontender nondistended no guarding rebounding or rigidity Neurological: A&O moves all extremities equal strength and symmetry Psychiatric: Cooperative and appropriate Medical Decision Making MEDICAL DECISION MAKING Number and Complexity of Problems Differential Diagnosis: [] [facility] Data External documents reviewed: [] My EKG interpretation: [] My CT interpretation: [] My X-ray interpretation: Reviewed My Ultrasound interpretation: [] Decision rules/scores evaluated: [] Discussed with: [] Treatment and Disposition ED Course: 28-year-old female reports emerged department chief complaint of a cough. States that has been going on for about 3 weeks now. Reports previously started on steroids, as well as Augmentin, without much relief. On physical exam the patient she is nontachycardic and afebrile. Lung sounds clear to auscultation. No signs of bacterial source of infection. Due to her concerns, we did do COVID and flu swabs. We also did a chest x-ray. All of these were negative for any acute findings. Discussed with the patient. Discussed likely bronchitis still. Due to her symptoms of, we will start her on a higher dose of steroids. Patient will also be started on Bromfed for cough relief. Discussed return precautions. Follow-up with your primary care provider in 3 to 5 days. If symptoms worsen, do not improve, or new symptoms arise please report back to emergency department for further evaluation. The patient was understanding and agreeable to plan moving forward. [X]The patient has acute bronchitis/bronchiol itis and antibiotics were not prescribed or dispensed today.[SATISFIES MIPS PERFORMANCE] [] The patient has acute bronchitis/bronchiol itis. Antibiotics were prescribed or dispensed because the patient meets one of the following: [MIPS PERFORMANCE EXCEPTION/EXCLUSION] [] Patient has a medical reason for prescribing or dispensing an antibiotic. That reason is [] (ex. COPD, bacterial infection, acute sinusitis, etc.). [] Patient is currently on antibiotics or has been in the last 30 days. [] Patient?s visit resulted in an inpatient admission. []The patient has acute bronchitis/bronchiol itis and antibiotics were prescribed or dispensed today. [DOES NOT SATISFY MIPS PERFORMANCE] Shared decision making: [] Code status: [] Assessment/Plan Bronchitis (J40: Bronchitis, not specified as acute or chronic) Orders: brompheniramine/dext romethorphan/PSE, 5 mL, Oral, QID for cold symptoms, 200 mL, Refill(s) 0, [facility], 162, cm, 07/20/23 13:30:00 EST, Height/Length Dosing, 89.7, kg, 07/20/23 13:30:00 EST, Weight Dosing predniSONE, 50 mg = 1 tab(s), Oral, Daily, X 7 day(s), # 7 tab(s), Refills(s) 0, Pharmacy: [facility] 1986, 162, cm, 07/20/23 13:30:00 EST, Height/Length Dosing, 89.7, kg, 07/20/23 13:30:00 EST, Weight Dosing Disposition Plan Patient Discharge Condition Stable Discharge Disposition To home Discharge Prescription List Prescriptions Bromfed DM oral syrup, 5 mL, Oral, QID, PRN predniSONE 50 mg Tab, 50 mg (more content not included)... Normal [facility] Comment on above: Result Comment: Elec tronically Signed By: Rajiv HALE, Geraldo Dickson\.br\Date and Time Signed: 07/20/23 16:28 EST\.br\Electronically Co-Signed By: Edvin Engel DO\.br\Date and Time Co-Signed: 07/20/23 18:13 EST ED Patient Education Noteon 07-20-2023 ED Patient Education Note Pulmonary Medicine Acute Bronchitis, Adult Acute bronchitis is when air tubes in the lungs (bronchi) suddenly get swollen. The condition can make it hard for you to breathe. In adults, acute bronchitis usually goes away within 2 weeks. A cough caused by bronchitis may last up to 3 weeks. Smoking, allergies, and asthma can make the condition worse. What are the causes? ? Germs that cause cold and flu (viruses). The most common cause of this condition is the virus that causes the common cold. ? Bacteria. ? Substances that bother (irritate) the lungs, including: ? Smoke from cigarettes and other types of tobacco. ? Dust and pollen. ? Fumes from chemicals, gases, or burned fuel. ? Indoor or outdoor air pollution. What increases the risk? ? A weak body's defense system. This is also called the immune system. ? Any condition that affects your lungs and breathing, such as asthma. What are the signs or symptoms? ? A cough. ? Coughing up clear, yellow, or green mucus. ? Making high-pitched whistling sounds when you breathe, most often when you breathe out (wheezing). ? Runny or stuffy nose. ? Having too much mucus in your lungs (chest congestion). ? Shortness of breath. ? Body aches. ? A sore throat. How is this treated? Acute bronchitis may go away over time without treatment. Your doctor may tell you to: ? Drink more fluids. This will help thin your mucus so it is easier to cough up. ? Use a device that gets medicine into your lungs (inhaler). ? Use a vaporizer or a humidifier. These are machines that add water to the air. This helps with coughing and poor breathing. ? Take a medicine that thins mucus and helps clear it from your lungs. ? Take a medicine that prevents or stops coughing. It is not common to take an antibiotic medicine for this condition. Follow these instructions at home: ? Take koiu-myh-brfgned and prescription medicines only as told by your doctor. ? Use an inhaler, vaporizer, or humidifier as told by your doctor. ? Take two teaspoons (10 mL) of honey at bedtime. This helps lessen your coughing at night. ? Drink enough fluid to keep your pee (urine) pale yellow. ? Do not smoke or use any products that contain nicotine or tobacco. If you need help quitting, ask your doctor. ? Get a lot of rest. ? Return to your normal activities when your doctor says that it is safe. ? Keep all follow-up visits. How is this prevented? ? Wash your hands often with soap and water for at least 20 seconds. If you cannot use soap and water, use hand supervisor machine workers. ? Avoid contact with people who have cold symptoms. ? Try not to touch your mouth, nose, or eyes with your hands. ? Avoid breathing in smoke or chemical fumes. ? Make sure to get the flu shot every year. Contact a doctor if: ? Your symptoms do not get better in 2 weeks. ? You have trouble coughing up the mucus. ? Your cough keeps you awake at night. ? You have a fever. Get help right away if: ? You cough up blood. ? You have chest pain. ? You have very bad shortness of breath. ? You faint or keep feeling like you are going to faint. ? You have a very bad headache. ? Your fever or chills get worse. These symptoms may be an emergency. Get help right away. Call your local emergency services (911 in the [place] ? Do not wait to see if the symptoms will go away. ? Do not drive yourself to the hospital. Summary ? Acute bronchitis is when air tubes in the lungs (bronchi) suddenly get swollen. In adults, acute bronchitis usually goes away within 2 weeks. ? Drink more fluids. This will help thin your mucus so it is easier to cough up. ? Take puuv-ojb-ngiunhp and prescription medicines only as told by your doctor. ? Contact a doctor if your symptoms do not improve after 2 weeks of treatment. This information is not intended to replace advice given to you by your health care provider. Make sure you discuss any questions you have with your health care provider. Document Revised: 12/27/2021 Document Reviewed: 12/27/2021 [employer] Patient Education ? 2022 [employer]. Normal [facility] ED Patient Summaryon 023 ED Patient Summary [address] [address] Patient Discharge Instructions Person Information Name: CAITLYN SCHRADER Age: 28 Years Arrival Date: 07/20/2023 13:13:21 Discharge Diagnosis: Bronchitis Primary Care Physician: Leslie Lake DO Provider Information Primary Provider: Edvin Engel DO Advanced Cripple Worker:None The exam and treatment you received in the Emergency Department were for an urgent problem and are not intended as complete care. It is important that you follow up with a doctor, nurse practitioner, or physician?s gallery assistant for ongoing care. If your symptoms become worse or you do not improve as expected and you are unable to reach your usual health care provider, you should return to the Emergency Department. We are available 24 hours a day. CAITLYN SCHRADER has been given the following list of patient education materials, prescriptions and follow-up instructions: Follow-up Instructions: With: Address: When: Leslie Lake [address] [place] [address] [place], [place] C, [facility] [address] [place] [address] Business (1) In 3 days 07/23/2023 Comments: Follow-up with your primary care provider in 3 to 5 days. If symptoms worsen, do not improve, or new symptoms arise please report back to emergency department for further evaluation. In the event that this physician does not participate in your insurance network, please consult with your insurance company to find a nearby participating provider. Patient Education Materials: Acute Bronchitis, Adult, Yvul-no-Cjaq A MESSAGE TO ALL PATIENTS REGARDING OPIOIDS PRESCRIPTION OPIOIDS: WHAT YOU NEED TO KNOW Prescription opioids can be used to help relieve wkcbpdrn-hy-yxmllb pain and are often prescribed following a surgery or injury, or for certain health conditions. These medications can be an important part of the treatment but also come with serious risks. It is important to work with your healthcare provider to make sure you are getting the safest, most effective care. WHAT ARE THE RISKS AND SIDE EFFECTS OF OPIOID USE? Prescription opioids carry serious risks of addiction and overdose, especially with prolonged use. An opioid overdose, often marked by slowed breathing, can cause sudden . The use of prescription opioids can have a number of side effects as well, even when taken as directed: ? Tolerance?meaning you might need to take more of the medication for the same pain relief ? Physical dependence?meaning you have symptoms of withdrawal when a medication is stopped ? Increased sensitivity to pain ? Constipation ? Nausea, vomiting, and dry mouth ? Sleepiness and dizziness ? Confusion ? Depression ? Low levels of testosterone that can result in lower sex drive, energy, and strength ? Itching and sweating RISKS ARE GREATER WITH: ? History of drug misuse, substance use disorder, or overdose ? Mental health conditions (such as depression or anxiety) ? Sleep apnea ? Older age (65 years and older) ? Avoid alcohol while taking prescription opioids. Also, unless specifically advised by your health care provider, medications to avoid include: ? Benzodiazepines (such as Xanax or Valium) ? Muscle relaxants (such as Soma or Flexeril) ? Hypnotics (such as Ambien or Lunesta) ? Other prescription opioids KNOW YOUR OPTIONS Talk to your health care provider about ways to manage your pain that don?t involve prescription opioids. Some of these options may actually work better and have fewer risks and side effects. Options may include: ? Pain relievers such as acetaminophen, ibuprofen, and naproxen ? Some medication that are also used for depression or seizures ? Physical therapy and exercise ? Cognitive behavioral therapy, a psychological, goal-directed approach, in which patients learn how to modify physical, behavioral, and emotional triggers of pain and stress. IF YOU ARE PRESCRIBED OPIOIDS FOR PAIN: ? Never take opioids in greater amounts or more often than prescribed. ? Follow up with your primary health care provider. o Work together to create a plan on how to manage your pain. o Talk about ways to help manage your pain that don?t involve prescription opioids. o Talk about any and all concerns and side effects. ? Help prevent misuse and abuse o Never sell or share prescription opioids. o Never use another person?s prescription opioids. ? Store prescription opioids in a secure place and out of reach of others (this may include visitors, children, friends, and family). ? Safely dispose of unused prescription opioids: Find your community drug take-back program or your pharmacy mail-back program, or flush them down the toilet, following guidance from the Food and Drug Administration (www.fda.gov/Drugs/R esourcesForYou). ? Visit www.cdc.gov/drugover dose to learn about the risks of opioids abuse and ov (more content not included)... Normal [facility] Influenza A&B Agon Influenzae A Ag Negative Normal Negative [facility] Comment on above: Performed By: #### 2 [id number], [id number] ####[facility] [id number] [place] [address] Influenzae B Ag Negative Normal Negative [facility] Comment on above: Result Comment: Test sensitivity and specificity vary for age group, specimen type, antigen types, and prevalence of disease. Test results must be evaluated in conjunction with other clinical data available to the physician. Individuals who received nasally administered Influenza A vaccine may have positive test results up to 3 days after vaccination. Performed By: #### 2 [id number] ####[facility] [id number] [place] [address] MICRO OTHER TESTSOrdered By: Deanna Owens on 07-20-2023 Influenzae A Ag Negative (07/20/23 1:27 PM) Normal Negative [facility] [address] Influenzae B Ag Negative 1 (07/20/23 1:27 PM) Normal Negative [facility] Comment on above: Interpretive Data: T est sensitivity and specificity vary for age group, specimen type, antigen types, and prevalence of disease. Test results must be evaluated in conjunction with other clinical data available to the physician. Individuals who received nasally administered Influenza A vaccine may have positive test results up to 3 days after vaccination. Rapid COV Int NEG Ctl Pass (07/20/23 1:27 PM) Normal [facility] Man [facility] Rapid COV Int POS Ctl Pass (07/20/23 1:27 PM) Normal [facility] SARS-CoV+SARS-CoV-2 (COVID-19) Ag IA.rapid Ql (Resp) Not Detected 2 (07/20/23 1:27 PM) Normal Not Detected [facility] Comment on above: Interpretive Data: Porfirio brittnee [employer]cted Dataitor System for Rapid Detection of SARS-CoV-2 is a chromatographic digital immunoassay intended for the direct and qualitative detection of SARS-CoV-2 nucleocapsid antigens in nasal swabs from individuals who are suspected of COVID-19 by their healthcare provider within the first five days of the onset of symptoms. Negative results should be treated as presumptive, do not rule out SARS-CoV-2 infection and should not be used as the sole basis for treatment or patient management decisions, including infection control decisions. Negative results should be considered in the context of a patient s recent exposures, history and the presence of clinical signs and symptoms consistent with COVID-19, and confirmed with a molecular assay, if necessary, for patient management. For in vitro diagnostic use. In the [place], only for use under an Emergency Use Authorization. In the [place], this test has not been FDA cleared or approved; this test has been authorized by FDA under an EUA for use by authorized laboratories; use by laboratories certified under the CLIA, 42 U.S.C. 263a, that meet requirements to perform moderate, high, or waived complexity tests and at the Point of Care (POC), i.e., in patient care settings operating under a CLIA Certificate of Waiver, Certificate of Compliance, or Certificate of Accreditation. This test has been authorized only for the detection of proteins from SARS-CoV-2, not for any other viruses or pathogens; and, in the [place], this test is only authorized for the duration of the declaration that circumstances exist justifying the authorization of emergency use of in vitro diagnostics for detection and/or diagnosis of the virus that causes COVID-19 under Section 564(b)(1) of the Act, 21 U.S.C. 360bbb-3(b)(1), unless the authorization is terminated or revoked sooner. Rapid COVID Antigen ([facility])on 07-20-2023 Rapid COV Int NEG Ctl Pass Normal [facility] Comment on above: Performed By: #### 2 [id number] ####[facility] [address] [place] [address] Rapid COV Int POS Ctl Pass Normal [facility] Comment on above: Performed By: #### 2 [id number] ####[facility] [address] [place] [address] SARS-CoV+SARS-CoV-2 (COVID-19) Ag IA.rapid Ql (Resp) Not detected Normal Not Detected [facility] Comment on above: Result Comment: The IMT ([employer]) System for Rapid Detection of SARS-CoV-2 is a chromatographic digital immunoassay intended for the direct and qualitative detection of SARS-CoV-2 nucleocapsid antigens in nasal swabs from individuals who are suspected of COVID-19 by their healthcare provider within the first five days of the onset of symptoms. Negative results should be treated as presumptive, do not rule out SARS-CoV-2 infection and should not be used as the sole basis for treatment or patient management decisions, including infection control decisions. Negative results should be considered in the context of a patient?s recent exposures, history and the presence of clinical signs and symptoms consistent with COVID-19, and confirmed with a molecular assay, if necessary, for patient management. For in vitro diagnostic use. In the [place], only for use under an Emergency Use Authorization. In the [place], this test has not been FDA cleared or approved; this test has been authorized by FDA under an EUA for use by authorized laboratories; use by laboratories certified under the CLIA, 42 U.S.C. ?263a, that meet requirements to perform moderate, high, or waived complexity tests and at the Point of Care (POC), i.e., in patient care settings operating under a CLIA Certificate of Waiver, Certificate of Compliance, or Certificate of Accreditation. This test has been authorized only for the detection of proteins from SARS-CoV-2, not for any other viruses or pathogens; and, in the [place], this test is only authorized for the duration of the declaration that circumstances exist justifying the authorization of emergency use of in vitro diagnostics for detection and/or diagnosis of the virus that causes COVID-19 under Section 564(b)(1) of the Act, 21 U.S.C. ? 360bbb-3(b)(1), unless the authorization is terminated or revoked sooner. Performed By: #### 2 [id number] ####[facility] [address] [place] [address] XR Chest 2 Viewson 3 XR Chest 2 Views Exam Date/Time: 07/20/2023 13:41 EST Reason for Exam: Cough Report IMPRESSION: NO RADIOGRAPHIC EVIDENCE OF ACUTE INTRATHORACIC PROCESS. EXAMINATION: XR Chest 2 Views HISTORY: Cough TECHNIQUE: Frontal and lateral views of the chest. COMPARISON: Chest radiographs 06/01/2020 FINDINGS: Cardiomediastinal silhouette is within normal limits. No pneumothorax, pleural effusion, or consolidation. No acute osseous abnormality. Ordering Provider: Edvin Engel FINAL REPORT Dictated: 07/20/2023 1:44 pm Wilfrid Centeno DO Signed (Electronic Signature): 07/20/2023 1:44 pm Signed by: Wilfrid Centeno DO Transcribed by: MICHAEL Technologist: GOPAL Technical Comments Radiation Dose: Ka,r in mGy = na DAP = na Normal [facility] US Pelvis Non-OB Completeon 07-05-2023 US Pelvis Non-OB Complete Exam Date/Time: 07/04/2023 09:20 EDT Reason for Exam: R10.2 Report IMPRESSION: Negative pelvic ultrasound. CLINICAL HISTORY: R10.2. Mid pelvic pain. Irregular bleeding. IUD for one year. COMPARISONS: None available. TECHNICAL FACTORS: Transabdominal and transvaginal sonography with transvaginal imaging was obtained to better assess pelvic anatomy. FINDINGS: Uterus: Normal in size, shape, and echogenicity. Endometrium: Normal in appearance. Intrauterine device identified centrally within endometrial canal. Right ovary: Normal in size, shape, and echogenicity. Color flow and Doppler without anomaly. Left ovary: Normal in size, shape, and echogenicity. Color flow and Doppler without anomaly. Free fluid: None Adnexal masses: None The uterus measurements and an estimated volume are: Uterus Length: 8.5 cm Uterus Width: 4.6 cm Uterus Height: 4.1 cm Uterus Volume: 83.7 cm3 Endometrium Thickness: 0.5 cm The right ovary measurements and an estimated volume are: Right Ovary Length: 2.4 cm Right Ovary Width: 3.3 cm Right Ovary Height: 1.4 cm Right Ovary Volume: 5.8 cm3 The left ovary measurements and an estimated volume are: Left Ovary Length: 2.9 cm Left Ovary Width: 2.5 cm Report Left Ovary Height: 2.9 cm Left Ovary Volume: 10.9 cm3 Ordering Provider: Georgie LOYOLA FINAL REPORT Dictated: 07/05/2023 10:03 am Ramírez Escalera MD Signed (Electronic Signature): 07/05/2023 10:03 am Signed by: Ramírez Escalera MD Transcribed by: MICHAEL Technologist: AMANDA Technical Comments Transabdominal Ultrasound Performed Normal [facility] Auto Diffon 07-04-2023 Basophils/100 WBC (Bld) 0.3 % Normal 0.0-2.0 [facility] Comment on above: Order Comment: Order Added by Discern Expert. Performed By: #### 1 [id number], 9157279, 8749214, 4666139, 2956522 ####[facility] [address] [place] [address] Basophils/Leukocytes Auto (Bld) [Pure # fraction] 0.0 E9/L Normal 0.0-0.2 [facility] Comment on above: Order Comment: Order Added by Discern Expert. Performed By: #### 1 2769932, 8859022, 5196558, 0428064, 6023456 ####[facility] [address] [place] [address] Eosinophils/100 WBC (Bld) 2.0 % Normal 0.0-8.0 [facility] Comment on above: Order Comment: Order Added by Discern Expert. Performed By: #### 1 5442011, 6342776, 2781661, 2767521, 4924625 ####[facility] [address] [place] [address] Eosinophils/Leukocyte s Auto (Bld) [Pure # fraction] 0.2 E9/L Normal 0.0-0.5 [facility] Comment on above: Order Comment: Order Added by Discern Expert. Performed By: #### 1 7084376, 1230475, 3320812, 9892087, 7899917 ####[address] [place] [address] Lymphocytes/100 WBC (Bld) 26.0 % Normal 14.0-50.0 [facility] Comment on above: Order Comment: Order Added by Carla Expert. Performed By: #### 1 6512934, 8355695, 6306233, 8059069, 0948652 ####[address] [address] Lymphocytes/Leukocyte s Auto (Bld) [Pure # fraction] 2.9 E9/L Normal 1.0-4.0 [facility] Comment on above: Order Comment: Order Added by Carla Expert. Performed By: #### 1 2528874, 1573480, 4382866, 8706940, 2613101 ####[address] [address] Monocytes/100 WBC (Bld) 6.8 % Normal 4.0-14.0 [facility] Comment on above: Order Comment: Order Added by Carla Expert. Performed By: #### 1 7768359, 8978517, 6338973, 0174027, 1894057 ####[address] [address] Monocytes/Leukocytes Auto (Bld) [Pure # fraction] 0.8 E9/L Normal 0.2-1.0 [facility] Comment on above: Order Comment: Order Added by Carla Expert. Performed By: #### 1 8738965, 6762739, 7897625, 3555640, 5109779 ####[address] [address] Neutrophils/100 WBC (Bld) 64.9 % Normal 36.0-75.0 [facility] Comment on above: Order Comment: Order Added by Discern Expert. Performed By: #### 1 1685102, 8172440, 0122212, 6697356, 7112663 ####[facility] [address] [place] [address] Neutrophils/Leukocyte s Auto (Bld) [Pure # fraction] 7.1 E9/L Normal 2.0-7.5 [facility] Comment on above: Order Comment: Order Added by Discern Expert. Performed By: #### 1 2267983, 8101833, 8807715, 5094204, 7324655 ####[facility] [address] [place] [address] BhCG Quanton 07-04-2023 HCG.beta subunit Qn 1 m[IU]/mL Normal 1-3 [facility] Comment on above: Result Comment: GEST ATIONAL AGE HCG RANGE (mIU/mL) NON- <1-3 0.2-1 WEEKS 5-50 1-2 WEEKS 50-500 2-3 WEEKS 100-5,000 3-4 WEEKS 500-10,000 4-5 WEEKS 1,000-50,000 5-6 WEEKS 10,000-100,000 6-8 WEEKS 15,000-200,000 8-12 WEEKS 10,000-100,000 Performed By: #### 2 634451 ####[address] [place] [address] CBC w/ Auto Diffon Erythrocyte distribution width (RBC) [Ratio] 12.9 % Normal 10.9-14.2 [facility] Comment on above: Performed By: #### 1 4513515, 8020996, 8304223, 4347046, 9552421 ####[facility] [address] [place] [address] Hematocrit (Bld) [Volume fraction] 41.6 % Normal 34.0-46.0 [facility] Comment on above: Performed By: #### 1 7710407, 9305957, 5406116, 0236445, 3432461 ####[facility] [address] [place] [address] Hemoglobin (Bld) [Mass/Vol] 14.1 g/dL Normal 12.0-16.0 [facility] Comment on above: Performed By: #### 1 9564983, 9243717, 1972892, 7043246, 2107581 ####[facility] [address] [place] [address] MCH (RBC) [Entitic mass] 30.1 pg Normal 27.0-34.0 [facility] Comment on above: Performed By: #### 1 0388515, 3547240, 1148360, 8852240, 6277817 ####[address] [place] [address] MCHC (RBC) [Mass/Vol] 33.9 g/dL Normal 31.4-36.0 [facility] Comment on above: Performed By: #### 1 7464726, 4085561, 5200438, 7328453, 4126239 ####[address] MCV (RBC) [Entitic vol] 89.0 fL Normal 80.0-100.0 [facility] Comment on above: Performed By: #### 1 6783932, 3833954, 4401179, 0809310, 5717599 ####[address] [address] Platelet mean volume (Bld) [Entitic vol] 7.7 fL Normal 6.4-10.8 [facility] Comment on above: Performed By: #### 1 8562777, 2627462, 9476580, 3520875, 9116809 ####[address] [place] [address] Platelets (Bld) [#/Vol] 320.0 E9/L Normal 150.0-500.0 [facility] Comment on above: Performed By: #### 1 9401088, 3416779, 7643666, 7607060, 4043821 ####[address] RBC (Bld) [#/Vol] 4.7 E12/L Normal 4.3-5.9 [facility] Comment on above: Performed By: #### 1 6955481, 1181600, 9145063, 0024096, 9826665 ####[facility] [address] [place] [address] WBC corrected for nucl RBC Auto (Bld) [#/Vol] 11.0 E9/L Normal 4.0-11.0 [facility] Comment on above: Performed By: #### 1 4002857, 3527366, 8681579, 3816247, 9095712 ####[facility] [address] [place] [address] Consent for Treatmenton 06-10 Consent for Treatment [id number] #1.00TIFF Normal [facility] Free T4on 07-04-2023 Free T4 [Mass/Vol] 0.76 ng/dL Normal 0.58-1.64 [facility] Comment on above: Performed By: #### 1 1925685, 3945421, 1204991, 9210808, 7573448 ####[facility] [address] [place] [address] YgfD0zdt 07-04-2023 HbA1c (Bld) [Mass fraction] 5.3 % Normal <=5.9 [facility] Comment on above: Performed By: #### 7 [id number] ####[facility] [address] [place] [address] PT & PTTon 07-04-2023 aPTT Coag (PPP) [Time] 31.1 second(s) Normal 25.1-36.5 [facility] Comment on above: Result Comment: Para meter 15 days - 4 weeks 1 - 5 months 6 - 11 months 1 - 5 years 6 - 10 years 11 - 17 years PTT Mean: 35.4 (27.6-45.6) Mean: 33.5 (24.8-40.7) Mean: 32.4 (25.1-40.7) Mean: 31.6 (24.0-39.2) Mean: 31.6 (26.9-38.7) Mean: 31.0 (24.6-38.4) Pediatric Reference ranges were obtained from a study by jesus Rebolledo. prepared from 1437 samples obtained at 7 different centers using the same coagulation reagent and instrumentation as [facility]. Currently there are no coagulation studies available worldwide for children to 14 days, and no normal ranges. Heparin therapeutic range (represented by Anti-Factor Xa activity of 0.2 - 0.4 U/mL) corresponds to PTT of 56.6 - 109.0 sec. Performed By: #### 1 2980482, 3825807, 9502751, 7600328, 8093754 ####[facility] [address] [place] [address] INR Coag (PPP) [Relative time] 1.0 {INR} Invalid Interpretation Code [facility] Comment on above: Result Comment: INR results are specifically intended to assess patients stabilized on long-term Anticoagulation therapy suggested INR?s ?Less Intensive Anticoagulation? 2.0 ? 3.0 Conventional Range 3.0 ? 4.5 Performed By: #### 1 1815335, 1059245, 6105532, 8597933, 8524252 ####[facility] [address] [place] [address] PT Coag (PPP) [Time] 11.2 second(s) Normal 9.4-12.5 [facility] Comment on above: Result Comment: 15 d ays - 4 weeks 1 - 5 months 6 -11 months 1- 5 years 6-10 years 11 -17 years Mean: 11.2 (9.5-12.6) Mean: 11.0 (9.7-12.8) Mean: 11.0 (9.8-13.0) Mean: 11.3 (9.9-13.4) Mean: 11.7 (10.0-14.6) Mean: 11.8 (10.0 - 14.1) Pediatric Reference ranges were obtained from a study by sonam Rebolledo prepared from 1437 samples obtained at 7 different centers using the same coagulation reagent and instrumentation as [facility]. Currently there are no coagulation studies available worldwide for children to 14 days, and no normal ranges. Performed By: #### 1 5160994, 9211768, 1719492, 7428852, 7279083 ####[facility] [address] [place] [address] Physician Orderon 07-04-2023 Physician Order [id number] 0#1.00TIFF Normal [facility] TSHon 07-04-2023 TSH Qn 0.90 m[IU]/L Normal 0.34-5.60 [facility] Comment on above: Performed By: #### 1 3927997, 0658031, 8858130, 4626813, 7451777 ####[facility] [address] [place] [address] Physician Orderon 06-17-2023 Physician Order [id number] #1.00TIFF Normal [facility] T3 Freeon 01-19-2023 Free T3 [Mass/Vol] 3.7 pg/mL Invalid Interpretation Code 2.0-4.4 [facility] Comment on above: Result Comment: Perf ormed at: [facility] [address] [id number] PhD Tori Vera Performed By: #### 2 825477, 1273929, 23377179, 6115458, 7023035, 6765596 ####[facility] [address] [place] [address] Auto Diffon 01-17-2023 Basophils/100 WBC (Bld) 0.2 % Normal 0.0-2.0 [facility] Comment on above: Order Comment: Order Added by Discern Expert. Performed By: #### 2 440672, 2554435, 46459409, 6574440, 2866065, 3800272 ####[facility] [address] [place] [address] Basophils/Leukocytes Auto (Bld) [Pure # fraction] 0.0 E9/L Normal 0.0-0.2 [facility] Comment on above: Order Comment: Order Added by Discern Expert. Performed By: #### 2 762641, 3915006, 36565234, 7334474, 1184137, 1336142 ####[facility] [address] [place] [address] Eosinophils/100 WBC (Bld) 0.9 % Normal 0.0-8.0 [facility] Comment on above: Order Comment: Order Added by Discern Expert. Performed By: #### 2 471306, 7581166, 86572570, 0345261, 5515693, 2824797 ####[address] [place] [address] Eosinophils/Leukocyte s Auto (Bld) [Pure # fraction] 0.1 E9/L Normal 0.0-0.5 [facility] Comment on above: Order Comment: Order Added by Carla Expert. Performed By: #### 2 587118, 2053123, 59777558, 7844572, 6319411, 8955191 ####[address] [address] Lymphocytes/100 WBC (Bld) 22.2 % Normal 14.0-50.0 [facility] Comment on above: Order Comment: Order Added by Carla Expert. Performed By: #### 2 034777, 0744719, 93084354, 4047034, 1284752, 7646302 ####[address] [address] Lymphocytes/Leukocyte s Auto (Bld) [Pure # fraction] 2.4 E9/L Normal 1.0-4.0 [facility] Comment on above: Order Comment: Order Added by Carla Expert. Performed By: #### 2 857503, 1173258, 25403956, 6052947, 8644095, 2858230 ####[address] [place] [address] Monocytes/100 WBC (Bld) 4.8 % Normal 4.0-14.0 [facility] Comment on above: Order Comment: Order Added by Carla Expert. Performed By: #### 2 342025, 8581821, 84249662, 3962510, 6537180, 4208456 ####[address] [place] [address] Monocytes/Leukocytes Auto (Bld) [Pure # fraction] 0.5 E9/L Normal 0.2-1.0 [facility] Comment on above: Order Comment: Order Added by Discern Expert. Performed By: #### 2 267655, 9475400, 44315900, 7076811, 0454639, 2416763 ####[address] [address] Neutrophils/100 WBC (Bld) 71.9 % Normal 36.0-75.0 [facility] Comment on above: Order Comment: Order Added by Discern Expert. Performed By: #### 2 681696, 5370969, 86985013, 8711545, 1198115, 6668592 ####[address] [address] Neutrophils/Leukocyte s Auto (Bld) [Pure # fraction] 7.7 E9/L High 2.0-7.5 [facility] Comment on above: Order Comment: Order Added by Discern Expert. Performed By: #### 2 603001, 7331431, 88150408, 9032503, 0654144, 5742750 ####[address] [address] CBC w/ Auto Diffon Erythrocyte distribution width (RBC) [Ratio] 13.2 % Normal 10.9-14.2 [facility] Comment on above: Performed By: #### 2 942498, 9621959, 12051813, 8526934, 7495479, 4156134 ####[address] [place] [address] Hematocrit (Bld) [Volume fraction] 42.3 % Normal 34.0-46.0 [facility] Comment on above: Performed By: #### 2 302851, 6710003, 40427450, 0067146, 8912294, 5471157 ####[facility] [address] [place] [address] Hemoglobin (Bld) [Mass/Vol] 14.2 g/dL Normal 12.0-16.0 [facility] Comment on above: Performed By: #### 2 376291, 3785314, 82948466, 3673079, 9538606, 1032291 ####[place] [address] MCH (RBC) [Entitic mass] 29.4 pg Normal 27.0-34.0 [facility] Comment on above: Performed By: #### 2 934396, 6505992, 75760616, 1974740, 0979683, 4583337 ####[address] [address] MCHC (RBC) [Mass/Vol] 33.5 g/dL Normal 31.4-36.0 [facility] Comment on above: Performed By: #### 2 259038, 1004972, 27635026, 6642780, 0701942, 2328878 ####[address] [address] MCV (RBC) [Entitic vol] 87.7 fL Normal 80.0-100.0 [facility] Comment on above: Performed By: #### 2 264062, 2462917, 51039213, 1206755, 1226218, 1300870 ####[address] [address] Platelet mean volume (Bld) [Entitic vol] 7.7 fL Normal 6.4-10.8 [facility] Comment on above: Performed By: #### 2 944542, 8085283, 69624267, 4878190, 5528693, 5879042 ####[address] [address] Platelets (Bld) [#/Vol] 314.0 E9/L Normal 150.0-500.0 [facility] Comment on above: Performed By: #### 2 143095, 3191429, 14402995, 0923808, 8194175, 7577512 ####[facility] [address] [place] [address] RBC (Bld) [#/Vol] 4.8 E12/L Normal 4.3-5.9 [facility] Comment on above: Performed By: #### 2 258428, 6101436, 03901697, 1125681, 9719515, 5116132 ####[facility] [address] [place] [address] WBC corrected for nucl RBC Auto (Bld) [#/Vol] 10.7 E9/L Normal 4.0-11.0 [facility] Comment on above: Performed By: #### 2 865748, 5613521, 57683927, 9027982, 5256101, 1203444 ####[facility] [address] [place] [address] CHEMISTRYOrdered By: SYSTEM SYSTEM on 01-17-2023 Albumin [Mass/Vol] 4.3 g/dL Normal 3.3 - 5.0 gm/dL [facility] Remisol Albumin/Globulin [Mass ratio] 1.2 {ratio} Normal 1.1 - 2.2 [facility] Rem[facility] ALP [Catalytic activity/Vol] 82 [iU]/d Normal 21 - 98 Int._Unit/L [facility] Rem[facility] ALT No additional P-5'-P [Catalytic activity/Vol] 19 [iU]/d Normal 6 - 46 Int._Unit/L [facility] Remisol Anion gap [Moles/Vol] 13 mmol/L Normal 6 - 16 mEq/L F [facility] Rem[facility] AST [Catalytic activity/Vol] 17 [iU]/d Normal 5 - 43 Int._Unit/L [facility] Bilirubin [Mass/Vol] 0.7 mg/dL Normal 0.0 - 1 .1 mg/dL [facility] Calcium [Mass/Vol] 9.3 mg/dL Normal 8.9 - 11. 1 mg/dL [facility] Chloride [Moles/Vol] 102 mmol/L Normal 101 - 1 11 mmol/L [facility] CO2 [Moles/Vol] 24 mmol/L Normal 21 - 31 mmol/L [facility] Creatinine [Mass/Vol] 0.7 mg/dL Normal 0.5 - 1.3 mg/dL [facility] GFR/1.73 sq M.predicted among non-blacks MDRD (S/P/Bld) [Vol rate/Area] 122 mL/min/1.73 m2 Normal >=59mL/min/1. 73 m2 FT Chem S Globulin (S) [Mass/Vol] 3.5 g/dL Normal 1.4 - 4.0 gm/dL [facility] Remisol Glucose [Mass/Vol] 106 mg/dL Normal 55 - 199 mg/dL [facility] Potassium [Moles/Vol] 3.6 mmol/L Normal 3.5 - 5.3 mmol/L [facility] Protein [Mass/Vol] 7.8 g/dL Normal 6.0 - 7.8 gm/dL [facility] Sodium [Moles/Vol] 135 mmol/L Normal 135 - 145 mmol/L [facility] Rem[facility] TSH Qn 1.13 m[IU]/L Normal 0.34 - 5.60 mcIU/mL [facility] Urea nitrogen [Mass/Vol] 11 mg/dL Normal 5 - 21 mg/dL [facility] Urea nitrogen/Creatinine [Mass ratio] 16 mg/mg Normal 10 - 20 [facility] Rem[facility] CMPon 01-17-2023 Albumin [Mass/Vol] 4.3 g/dL Normal 3.3-5.0 [facility] Comment on above: Performed By: #### 2 673672, 2867525, 45681206, 3030151, 8503055, 6558659 ####[facility] [address] [place] [address] Albumin/Globulin (S) [Mass conc ratio] 1.2 Normal 1.1-2.2 [facility] Comment on above: Performed By: #### 2 616959, 3647936, 13763306, 4787294, 0656939, 8125590 ####[facility] [address] [place] [address] ALP [Catalytic activity/Vol] 82 Int._Unit/L Normal 21-98 [facility] Comment on above: Performed By: #### 2 513878, 8396185, 24251784, 6257524, 8641972, 8672406 ####[facility] [address] [place] [address] ALT No additional P-5'-P [Catalytic activity/Vol] 19 Int._Unit/L Normal 6-46 [facility] Comment on above: Performed By: #### 2 498800, 2961474, 42243615, 4671640, 4208014, 0128101 ####[facility] [address] [place] [address] Anion gap [Moles/Vol] 13 mmol/L Normal 6-16 [facility] Comment on above: Performed By: #### 2 148677, 2136843, 30410048, 6807950, 7548014, 9444898 ####[facility] [address] [place] [address] AST [Catalytic activity/Vol] 17 Int._Unit/L Normal 5-43 [facility] Comment on above: Performed By: #### 2 558456, 7448848, 64789061, 4534080, 9527860, 8386393 ####[facility] [address] [place] [address] Bilirubin [Mass/Vol] 0.7 mg/dL Normal 0.0-1.1 [facility] Comment on above: Performed By: #### 2 457661, 4555115, 61577757, 2407864, 8534631, 8348996 ####[facility] [address] [place] [address] Calcium [Mass/Vol] 9.3 mg/dL Normal 8.9-11.1 [facility] Comment on above: Performed By: #### 2 908715, 2171514, 00722251, 8802808, 4146532, 8275558 ####[facility] [address] [place] [address] Chloride [Moles/Vol] 102 mmol/L Normal 101-111 [facility] Comment on above: Performed By: #### 2 207542, 0962570, 95323975, 0277259, 9378114, 1815311 ####[facility] [address] [place] [address] CO2 [Moles/Vol] 24 mmol/L Normal 21-31 [facility] Comment on above: Performed By: #### 2 743526, 3223311, 67469510, 4356122, 9930376, 2777853 ####[facility] [address] [place] [address] Creatinine [Mass/Vol] 0.7 mg/dL Normal 0.5-1.3 [facility] Comment on above: Performed By: #### 2 270932, 5928288, 55847299, 0087092, 6172593, 2941744 ####[facility] [address] [place] [address] Globulin (S) [Mass/Vol] 3.5 g/dL Normal 1.4-4.0 [facility] Comment on above: Performed By: #### 2 448693, 4420076, 65173707, 7398667, 7227125, 9851132 ####[facility] [address] [place] [address] Glucose [Mass/Vol] 106 mg/dL Normal 55-199 [facility] Comment on above: Result Comment: If t his glucose result represents a fasting glucose, interpretation should refer to the following reference range: 55-99 mg/dL Performed By: #### 2 379727, 9798045, 78274710, 8240850, 8831195, 3387335 ####[facility] [address] [place] [address] Potassium [Moles/Vol] 3.6 mmol/L Normal 3.5-5.3 [facility] Comment on above: Performed By: #### 2 312633, 4038790, 73337760, 8374802, 3602495, 0166206 ####[facility] [address] [place] [address] Protein [Mass/Vol] 7.8 g/dL Normal 6.0-7.8 [facility] Comment on above: Performed By: #### 2 093032, 4794021, 31756793, 7256097, 5045420, 6103050 ####[facility] [address] [place] [address] Sodium [Moles/Vol] 135 mmol/L Normal 135-145 [facility] Comment on above: Performed By: #### 2 940568, 6834856, 86094023, 8836938, 1126395, 8796281 ####[facility] [address] [place] [address] Urea nitrogen [Mass/Vol] 11 mg/dL Normal 5-21 [facility] Comment on above: Performed By: #### 2 859454, 8859462, 54269191, 9041018, 7030620, 6097093 ####[facility] [address] [place] [address] Urea nitrogen/Creatinine [Mass ratio] 16 No Units Normal 10-20 [facility] Comment on above: Performed By: #### 2 137378, 0929097, 01029065, 1804544, 7333096, 6134550 ####[facility] [address] [place] [address] Consent for Treatmenton 01-07 Consent for Treatment [id number] #1.00CD:127 Normal [facility] HEMATOLOGYOrdered By: SYSTEM SYSTEM on 01-17-2023 Basophils/100 WBC (Bld) 0.2 % Normal 0.0 - 2.0 % [facility] HemeAutoSS Basophils/Leukocytes Auto (Bld) [Pure # fraction] 0.0 E9/L Normal 0.0 - 0.2 E9/L [facility] HemeAutoSS Eosinophils/100 WBC (Bld) 0.9 % Normal 0.0 - 8.0 % [facility] HemeAutoSS Eosinophils/Leukocyte s Auto (Bld) [Pure # fraction] 0.1 E9/L Normal 0.0 - 0.5 E9/L [facility] HemeAutoSS Lymphocytes/100 WBC (Bld) 22.2 % Normal 14.0 - 50.0 % [facility] HemeAutoSS Lymphocytes/Leukocyte s Auto (Bld) [Pure # fraction] 2.4 E9/L Normal 1.0 - 4.0 E9/L [facility] HemeAutoSS Monocytes/100 WBC (Bld) 4.8 % Normal 4.0 - 14.0 % [facility] Monocytes/Leukocytes Auto (Bld) [Pure # fraction] 0.5 E9/L Normal 0.2 - 1.0 E9/L [facility] Neutrophils/100 WBC (Bld) 71.9 % Normal 36.0 - 75.0 % [facility] Neutrophils/Leukocyte s Auto (Bld) [Pure # fraction] 7.7 E9/L High 2.0 - 7.5 E9/L [facility] HEMATOLOGYOrdered By: Noble Chang on 01-17-2023 Erythrocyte distribution width (RBC) [Ratio] 13.2 % Normal 10.9 - 14.2 % [facility] Hematocrit (Bld) [Volume fraction] 42.3 % Normal 34.0 - 46.0 % [facility] Hemoglobin (Bld) [Mass/Vol] 14.2 g/dL Normal 12.0 - 16.0 gm/dL [facility] MCH (RBC) [Entitic mass] 29.4 pg Normal 27.0 - 34.0 pg [facility] MCHC (RBC) [Mass/Vol] 33.5 g/dL Normal 31.4 - 36.0 gm/dL [facility] MCV (RBC) [Entitic vol] 87.7 fL Normal 80.0 - 100.0 fL [facility] Platelet mean volume (Bld) [Entitic vol] 7.7 fL Normal 6.4 - 10.8 fL [facility] Platelets (Bld) [#/Vol] 314.0 E9/L Normal 150.0 - 500.0 E9/L [facility] RBC (Bld) [#/Vol] 4.8 E12/L Normal 4.3 - 5.9 E12/L [facility] WBC corrected for nucl RBC Auto (Bld) [#/Vol] 10.7 E9/L Normal 4.0 - 11.0 E9/L [facility] LeahAutoSS Physician Orderon 01-17-2023 Physician Order [id number] 5#[id number] Normal [facility] TSHon 01-17-2023 TSH Qn 1.13 m[IU]/L Normal 0.34-5.60 [facility] Comment on above: Performed By: #### 2 [id number] ####[facility] [id number] [place] [address] eGFRon 01-17-2023 GFR/1.73 sq M.predicted among non-blacks MDRD (S/P/Bld) [Vol rate/Area] 122 mL/min/1.73 m2 Normal >=59 [facility] Comment on above: Order Comment: Order added by Discern Expert. Result Comment: Home Teaching Gr[employer] 9 Thru 12 Teacher dhaval kidney disease could be indicated at eGFR's of less than 60 mL/min/1.73m2. Kidney failure is indicated at less than 15 mL/min/1.73m2. Performed By: #### 2 [id number] ####[facility] [id number] [place] [address] CBC AUTO DIFFon 02-13-2022 BASO # 0.0 103/ul Normal 0.0-0.1 [facility] Comment on above: Performed By: #### C BC #### [facility] [address] [place] [address] Dr. Rob Anthony Basophils/100 WBC (Bld) 0.2 % Normal 0.2-2.[address] [facility] Comment on above: Performed By: #### C BC #### [facility] [address] [place] [address] Dr. Rob Anthony EO # 0.1 103/ul Normal 0.0-0.7 [facility] Comment on above: Performed By: #### C BC #### [facility] [address] [address] [address] Rob Anthony Eosinophils/100 WBC (Bld) 0.8 % Critically low 0.9-7.0 [facility] Comment on above: Performed By: #### C BC #### [facility] [address] [place] [address] Dr. Rob Anthony Erythrocyte distribution width (RBC) [Ratio] 12.7 % Normal 11.0-15.0 [facility] Comment on above: Performed By: #### C BC #### [facility] [address] [place] [address] Dr. Rob Anthony Hematocrit (Bld) [Volume fraction] 32.8 % Critically low 36.0-48.0 [facility] Comment on above: Performed By: #### C BC #### [facility] [address] [place] [address] Dr. Rob Anthony Hemoglobin (Bld) [Mass/Vol] 10.8 g/dL Critically low 12.0-16.0 [facility] Comment on above: Performed By: #### C BC #### [facility] [address] [place] [address] Dr. Rob Anthony IG # 0.13 10e3/ul Critically high 0.00-0.03 [facility] Comment on above: Performed By: #### C BC #### [facility] [address] [place] [address] Dr. Rob Anthony IG % 0.8 % Critically high 0.0-0.5 [facility] Comment on above: Performed By: #### C BC #### [facility] [address] [place] [address] Dr. Rob Anthony LYMPH # 3.2 103/ul Normal 1.2-3.[address] [facility] Comment on above: Performed By: #### C BC #### [facility] [address] [place] [address] Dr. Rob Anthony Lymphocytes/100 WBC (Bld) 18.8 % Critically low 20.5-60.0 [facility] Comment on above: Performed By: #### C BC #### [facility] [address] [place] [address] Dr. Rob Anthony MANUAL DIFF REQ NO Normal [facility] Comment on above: Performed By: #### C BC #### [facility] [address] [place] [address] Dr. Rob Anthony MCH (RBC) [Entitic mass] 29.9 pg Normal 26.7-34.[address] [facility] Comment on above: Performed By: #### C BC #### [facility] [address] [place] [address] Dr. Rob Anthony MCHC (RBC) [Mass/Vol] 32.9 g/dL Normal 29.9-35.[address] [facility] Comment on above: Performed By: #### C BC #### [facility] [address] [place] [address] Dr. Rob Anthony MCV (RBC) [Entitic vol] 90.9 fL Normal 81.0-99.[address] [facility] Comment on above: Performed By: #### C BC #### [facility] [address] [place] [address] Dr. Rob Anthony MONO # 1.2 103/ul Critically high 0.3-0.8 [facility] Comment on above: Performed By: #### C BC #### [facility] [address] [place] [address] Dr. Rob Anthony Monocytes/100 WBC (Bld) 7.0 % Normal 1.7-12.[address] [facility] Comment on above: Performed By: #### C BC #### [facility] [address] [place] [address] Dr. Rob Anthony NEUT # 12.3 103/ul Critically high 1.4-6.5 [facility] Comment on above: Performed By: #### C BC #### [facility] [address] [place] [address] Dr. Rob Anthony Neutrophils/100 WBC (Bld) 72.4 % Normal 43.0-75.[address] [facility] Comment on above: Performed By: #### C BC #### [facility] [address] [place] [address] Dr. Rob Anthony Platelet mean volume (Bld) [Entitic vol] 9.3 fL Critically low 9.5-13.[address] [facility] Comment on above: Performed By: #### C BC #### [facility] [address] [place] [address] Dr. Rob Anthony PLT 160 103/ul Normal 150-[address] [facility] Comment on above: Performed By: #### C BC #### [facility] [address] [address] [address] Rob Anthony RBC 3.61 106/ul Critically low 4.20-5.40 [facility] Comment on above: Performed By: #### C BC #### [facility] [address] [place] [address] Dr. Rob Anthony WBC 16.9 103/ul Critically high 4.0-11.0 [facility] Comment on above: Performed By: #### C BC #### [facility] [address] [place] [address] Dr. Rob Anthony CBC AUTO DIFFon 02-12-2022 BASO # 0.0 103/ul Normal 0.0-0.1 [facility] Comment on above: Performed By: #### C BC #### [facility] [address] [place] [address] Dr. Rob Anthony Basophils/100 WBC (Bld) 0.3 % Normal 0.2-2.[address] [facility] Comment on above: Performed By: #### C BC #### [facility] [address] [place] [address] Dr. Rob Anthony EO # 0.1 103/ul Normal 0.0-0.[address] [facility] Comment on above: Performed By: #### C BC #### [facility] [address] [place] [address] Dr. Rob Anthony Eosinophils/100 WBC (Bld) 1.2 % Normal 0.9-7.[address] [facility] Comment on above: Performed By: #### C BC #### [facility] [address] [place] [address] Dr. Rob Anthony Erythrocyte distribution width (RBC) [Ratio] 12.7 % Normal 11.0-15.0 [facility] Comment on above: Performed By: #### C BC #### [facility] [address] [place] [address] Dr. Rob Anthony Hematocrit (Bld) [Volume fraction] 33.7 % Critically low 36.0-48.0 [facility] Comment on above: Performed By: #### C BC #### [facility] [address] [place] [address] Dr. Rob Anthony Hemoglobin (Bld) [Mass/Vol] 11.5 g/dL Critically low 12.0-16.0 [facility] Comment on above: Performed By: #### C BC #### [facility] [address] [place] [address] Dr. Rob Anthony IG # 0.09 10e3/ul Critically high 0.00-0.03 [facility] Comment on above: Performed By: #### C BC #### [facility] [address] [place] [address] Dr. Rob Anthony IG % 0.8 % Critically high 0.0-0.5 [facility] Comment on above: Performed By: #### C BC #### [facility] [address] [place] [address] Dr. Rob Anthony LYMPH # 2.9 103/ul Normal 1.2-3.8 [facility] Comment on above: Performed By: #### C BC #### [facility] [address] [place] [address] Dr. Rob Anthony Lymphocytes/100 WBC (Bld) 25.0 % Normal 20.5-60.0 [facility] Comment on above: Performed By: #### C BC #### [facility] [address] [place] [address] Dr. Rob Anthony MANUAL DIFF REQ NO Normal [facility] Comment on above: Performed By: #### C BC #### [facility] [address] [place] [address] Dr. Rob Anthony MCH (RBC) [Entitic mass] 30.5 pg Normal 26.7-34.0 [facility] Comment on above: Performed By: #### C BC #### [facility] [address] [place] [address] Dr. Rob Anthony MCHC (RBC) [Mass/Vol] 34.1 g/dL Normal 29.9-35.2 [facility] Comment on above: Performed By: #### C BC #### [facility] [address] [address] [address] Rob Anthony MCV (RBC) [Entitic vol] 89.4 fL Normal 81.0-99.0 [facility] Comment on above: Performed By: #### C BC #### [facility] [address] [place] [address] Dr. Rob Anthony MONO # 0.7 103/ul Normal 0.3-0.8 [facility] Comment on above: Performed By: #### C BC #### [facility] [address] [place] [address] Dr. Rob Anthony Monocytes/100 WBC (Bld) 6.5 % Normal 1.7-12.0 [facility] Comment on above: Performed By: #### C BC #### [facility] [address] [place] [address] Dr. Rob Anthony NEUT # 7.6 103/ul Critically high 1.4-6.5 [facility] Comment on above: Performed By: #### C BC #### [facility] [address] [place] [address] Dr. Rob Anthony Neutrophils/100 WBC (Bld) 66.2 % Normal 43.0-75.[address] [facility] Comment on above: Performed By: #### C BC #### [facility] [address] [place] [address] Dr. Rob Anthony Platelet mean volume (Bld) [Entitic vol] 9.5 fL Normal 9.5-13.5 [facility] Comment on above: Performed By: #### C BC #### [facility] [address] [place] [address] Dr. Rob Anthony PLT 194 103/ul Normal 150-[address] [facility] Comment on above: Performed By: #### C BC #### [facility] [address] [place] [address] Dr. Rob Anthony RBC 3.77 106/ul Critically low 4.20-5.40 [facility] Comment on above: Performed By: #### C BC #### [facility] [address] [place] [address] Dr. Rob Anthony WBC 11.4 103/ul Critically high 4.0-11.0 [facility] Comment on above: Performed By: #### C BC #### [facility] [address] [place] [address] Dr. Rob Anthony Covid-19 PCR ([facility])on SARS-CoV-2 (COVID-19) RNA SANDRA+probe Ql (Unsp spec) Not detected Normal NOT DETECTED [facility] Comment on above: Result Comment: When diagnostic testing is negative, the possibility of a false negative should be considered in the context of a patient's recent exposures and the presence of clinical signs and symptoms consistent with SARS-CoV-2. This test is not yet approved or cleared by the [place] FDA. When there are no FDA-approved or cleared tests available, and other criteria are met, FDA can make tests available under an emergency access mechanism called an Emergency Use Authorization (EUA). The EUA for this test is supported by the [place] of Health and Human Service's declaration that circumstances exist to justify the emergency use of in vitro diagnostics for the detection and/or diagnosis of the virus that causes COVID-19. This EUA will remain in effect for the duration of the COVID-19 declaration justifying emergency of IVDs, unless it is terminated or revoked by the FDA (after which the test may no longer be used). Performed By: #### C VDTBH #### [facility] [address] [place] [address] Dr. Rob Anthony DRUG SCREEN RAPID (URINE)on 02-12-2022 AMP Negative Normal NEGATIVE [facility] Comment on above: Performed By: #### D RUGRPD #### [facility] [address] [place] [address] Dr. Rob Anthony BAR Negative Normal NEGATIVE [facility] Comment on above: Performed By: #### D RUGRPD #### [facility] [address] [place] [address] Dr. Rob Anthony BUP Negative Normal NEGATIVE [facility] Comment on above: Performed By: #### D RUGRPD #### [facility] [address] [place] [address] Dr. Rob Anthony BZO Negative Normal NEGATIVE [facility] Comment on above: Performed By: #### D RUGRPD #### [facility] [address] [place] [address] Dr. Rob Anthony ROZ Negative Normal NEGATIVE [facility] Comment on above: Performed By: #### D RUGRPD #### [facility] [address] [place] [address] Dr. Rob Anthony CUT-OFFS SEE BELOW Normal [facility] Comment on above: Result Comment: AMP (Amphetamine): 500ng/mL, BAR (Barbituates): 200 ng/mL, BZO (Benzodiazepines): 150 ng/mL, BUP (Buprenorphine): 10 ng/mL, ROZ (Cocaine): 150 ng/mL, mAMP (Methamphetamine): 500 ng/mL, MTD (Methadone): 200 ng/mL, OPI (Opiates): 100 ng/mL, OXY (Oxycodone): 100 ng/mL, PCP (Phencyclidine): 25 ng/mL, PPX (Propoxyphene): 300 ng/mL, THC (Cannabinoids): 50 ng/mL, TCA (Trycyclic Antidepressants): 300 ng/mL Performed By: #### D RUGRPD #### [facility] [address] [place] [address] Dr. Rob Anthony DRUG CUT HEADER DRUG CLASS TEST SYSTEM CUT-OFF CONCENTRATIONS ARE FOLLOWS: Normal [facility] Comment on above: Performed By: #### D RUGRPD #### [facility] [address] [place] [address] Dr. Rob Anthony mAMP Negative Normal NEGATIVE [facility] Comment on above: Performed By: #### D RUGRPD #### [facility] [address] [place] [address] Dr. Rob Anthony MTD Negative Normal NEGATIVE [facility] Comment on above: Performed By: #### D RUGRPD #### [facility] [address] [place] [address] Dr. Rob Anthony OPI Negative Normal NEGATIVE [facility] Comment on above: Performed By: #### D RUGRPD #### [facility] [address] [place] [address] Dr. Rob Anthony OXY Negative Normal NEGATIVE [facility] Comment on above: Performed By: #### D RUGRPD #### [facility] [address] [place] [address] Dr. Rob Anthony PCP Negative Normal NEGATIVE [facility] Comment on above: Performed By: #### D RUGRPD #### [facility] [address] [place] [address] Dr. Rob Anthony PPX Negative Normal NEGATIVE [facility] Comment on above: Performed By: #### D RUGRPD #### [facility] [address] [place] [address] Dr. Rob Anthony TCA Negative Normal NEGATIVE [facility] Comment on above: Performed By: #### D RUGRPD #### [facility] [address] [place] [address] Dr. Rob Anthony THC Negative Normal NEGATIVE [facility] Comment on above: Performed By: #### D RUGRPD #### [facility] [address] [place] [address] Dr. Rob Anthony TYPE AND SCREENon 02-12-2022 TYPE AND SCREEN Negative Normal [facility] Comment on above: Performed By: #### T NS #### [facility] [address] [place] [address] Dr. Rob Anthony GROUP B STREP CULTUREon 01-07 S. agalactiae Ag Ql (Unsp spec) Culture Observations: NEGATIVE FOR GROUP B STREPTOCOCCUS. Normal [facility] Comment on above: Performed By: #### C BC #### [facility] [address] [place] [address] Dr. Rob Anthony RHOGAMon 11-30-2021 RHOGAM Status Information Issued Quantity 1 Product ID Rh Immune Globulin Lot Number [id number] Issue Date/Time [id number] Normal [facility] Comment on above: Performed By: #### R HOG #### [facility] [address] [place] [address] Dr. Rob Anthony TYPE AND SCREENon 11-29-2021 TYPE AND SCREEN Negative Normal [facility] Comment on above: Performed By: #### C BC #### [facility] [address] [place] [address] Dr. Rob Anthony GLUCOSE - 1HRon 11-17-2021 Glucose [Mass/Vol] 123 mg/dL Critically high 74-106 T [facility] Comment on above: Performed By: #### G LU1HR #### [facility] [address] [place] [address] Dr. Rob Anthony HEMOGRAM AND PLATELon 2021 Hematocrit (Bld) [Volume fraction] 39.9 % Normal 36.0-48.0 [facility] Comment on above: Performed By: #### H H #### [facility] [address] [place] [address] Dr. Rob Anthony Hemoglobin (Bld) [Mass/Vol] 13.3 g/dL Normal 12.0-16.0 [facility] Comment on above: Performed By: #### H H #### [facility] [address] [place] [address] Dr. Rob Anthony MCH (RBC) [Entitic mass] 31.1 pg Normal 26.7-34.0 [facility] Comment on above: Performed By: #### H H #### [facility] [address] [place] [address] Dr. Rob Anthony MCHC (RBC) [Mass/Vol] 33.3 g/dL Normal 29.9-35.2 [facility] Comment on above: Performed By: #### H H #### [facility] [address] [place] [address] Dr. Rob Anthony MCV (RBC) [Entitic vol] 93.4 fL Normal 81.0-99.0 [facility] Comment on above: Performed By: #### H H #### [facility] [address] [address] [address] Rob Anthony PLT 219 103/ul Normal 150-450 [facility] Comment on above: Performed By: #### H H #### [facility] [address] [address] [address] Rob Anthony RBC 4.27 106/ul Normal 4.20-5.40 [facility] Comment on above: Performed By: #### H H #### [facility] [address] [address] [address] Rob Anthony WBC 12.0 103/ul Critically high 4.0-11.0 [facility] Comment on above: Performed By: #### H H #### [facility] [address] [place] [address] Dr. Rob Anthony PAP ACOG PANEL 2: 21 to 29on 11-03-2021 . . Normal [facility] Comment on above: Performed By: #### 4 [id number] #### [facility] [address] [place] [address] Dr. Rob Anthony Age Gdln ACOG Testing - [facility] Comment on above: Performed By: #### 4 [id number] #### [facility] [address] [address] [address] Rob Anthony DIAGNOSIS: Comment Normal [facility] Comment on above: Result Comment: NEGA TIVE FOR INTRAEPITHELIAL LESION OR MALIGNANCY. Performed By: #### 4 [id number] #### [facility] [address] [place] [address] Dr. Rob Anthony Methodology: Comment Normal [facility] Comment on above: Result Comment: This liquid based ThinPrep(R) pap test was screened with the use of an image guided system. Performed By: #### 4 [id number] #### [facility] [address] [place] [address] Dr. Rob Anthony Note: Comment Normal [facility] Comment on above: Result Comment: The Pap smear is a screening test designed to aid in the detection of premalignant and malignant conditions of the uterine cervix. It is not a diagnostic procedure and should not be used as the sole means of detecting cervical cancer. Both false-positive and false-negative reports do occur. . Performed By: #### 4 [id number] #### [facility] [address] [place] [address] Dr. Rob Anthony Performed by: Comment Normal [facility] Comment on above: Result Comment: Jessica Blackmon, Self Contained Behavior Unit Teacher (ASCP) Performed By: #### 4 [id number] #### [facility] [address] [place] [address] Dr. Rob Anthony Reflex Criteria: Comment Normal [facility] Comment on above: Result Comment: The HPV DNA reflex criteria were not met with this specimen result therefore, no HPV testing was performed. . Performed By: #### 4 [id number] #### [facility] [address] [place] [address] Dr. Rob Anthony Specimen adequacy: Comment Normal [facility] Comment on above: Result Comment: Sati sfactory for evaluation. Endocervical and/or squamous metaplastic cells (endocervical component) are present. Performed By: #### 4 [id number] #### [facility] [address] [place] [address] Dr. Rob Anthony CHLAMYDIA/GONOCOCCUS SANDRA (SW AB/URINE/PAPon 11-02-2021 Chlamydia trachomatis, SANDRA Negative Normal Negative [facility] Comment on above: Performed By: #### C T/NGNA #### [facility] [address] [place] [address] Dr. Rob Anthony Neisseria gonorrhoeae, SANDRA Negative Normal Negative [facility] Comment on above: Performed By: #### C T/NGNA #### [facility] [address] [place] [address] Dr. Rob Anthony VAGINITIS/VAGINOSIS DNA PROB Bobby 11-01-2021 Starla species Negative Normal Negative [facility] Comment on above: Performed By: #### C BC #### [facility] [address] [address] [address] Rob Anthony Gardnerella vaginalis Negative Normal Negative [facility] Comment on above: Performed By: #### C BC #### [facility] [address] [address] [address] Rob Anthony Trichomonas vaginalis Negative Normal Negative [facility] Comment on above: Performed By: #### C BC #### [facility] [address] [address] [address] Rob Anthony US PREG ANATOMY SINGLEon US PREG ANATOMY SINGLE EXAMINATION: US PREG ANATOMY SINGLE HISTORY: anatomy study COMPARISON: No relevant comparison available. TECHNIQUE: Transabdominal sonographic examination was performed for obstetrical and evaluation. FINDINGS: Number: 1 Heart Rate: 130 H.B. /min Amniotic Fluid Volume: Subjectively normal Placental Location: Posterior with lower margin 5.8 cm from internal os. Cervix Length: 4.3 cm; closed. ANATOMY: Normal Structures -cerebellum, choroid plexus, cisterna magna, lateral cerebral ventricles, orbits, midline falx, hard palate, four-chamber heart, RVOT, LVOT, stomach, kidneys, bladder, umbilical cord insertion into abdomen, three-vessel cord, cervical spine, thoracic spine, lumbar spine, sacral spine, right upper extremity, left upper extremity, right lower extremity, left lower extremity. SUBOPTIMALLY SEEN: None ABNORMALITIES: Occasional short episodes of marked bradycardia. BIOMETRY: BPD: 4.5 cm 19 weeks 3 days HC: 17.6 cm 20 weeks 0 days AC: 15.1 cm 20 weeks 2 days FL: 3.3 cm 20 weeks 3 days EFW: 3 47 g (65% by ultrasound, 48% by expected) FL/AC: 0.886738 FL/BPD: 0.815594 HC/AC: 1.060604 GESTATIONAL AGE: Age by EDC: 20 weeks, 2 days BING by EDC: 02/19/2022 Age by current US: 20 weeks, 0 days BING by current US: 02/21/2022 IMPRESSION: 1. Single live intrauterine with growth detailed above. 2. Occasional short episodes of bradycardia. Dr. Loyola is aware of these findings. Electronically authenticated by: FERNANDA GREEN Date: 2021-10-04 11:38 Normal [facility] US PREG TVon 08-10-2021 US PREG TV EXAMINATION: US PREG TV HISTORY: Missed period COMPARISON: No relevant comparison available. FINDINGS: GESTATIONAL SAC: Present and normal appearing. POLE: Present and normal appearing. YOLK SAC: Present. CARDIAC: Present. UTERUS: Normal size and appearance of uterus. Prominent periuterine vessels bilaterally. OVARIES: Right: Corpus lutein cyst. Left: Normal. CERVIX: 5.3 cm in length and closed. CUL-DE-SAC: Normal. OTHER: None. AGE BY LMP: 12 weeks, 3 days BING BY LMP: 02/19/2022 AGE BY US CRL: 12 weeks, 2 days BING BY US CRL: 02/20/2022 IMPRESSION: 1. Single live intrauterine . Electronically authenticated by: FERNANDA GREEN Date: 2021-08-10 13:46 Normal [facility] Vital Signs Date Time Vital Sign Value Performing Clinician Facility 01-07-2024 23:31-0400 Diastolic blood pressure 81 mm[Hg] [facility] 01-07-2024 23:31-0400 Heart rate 101 /min [facility] 01-07-2024 23:31-0400 Mean blood pressure 91 mm[Hg] [facility] 01-07-2024 23:31-0400 Respiratory rate 17 /min [facility] 01-07-2024 23:31-0400 SaO2% (BldA) [Mass fraction] 97 % [facility] 01-07-2024 23:31-0400 Systolic blood pressure 111 mm[Hg] [facility] 01-07-2024 22:31-0400 Diastolic blood pressure 79 mm[Hg] [facility] 01-07-2024 22:31-0400 Heart rate 87 /min [facility] 01-07-2024 22:31-0400 Mean blood pressure 89 mm[Hg] [facility] 01-07-2024 22:31-0400 Respiratory rate 15 /min [facility] 01-07-2024 22:31-0400 SaO2% (BldA) [Mass fraction] 100 % [facility] 01-07-2024 22:31-0400 Systolic blood pressure 108 mm[Hg] [facility] 01-07-2024 21:03-0400 Body temperature 98.78 [degF] [facility] 01-07-2024 21:03-0400 Diastolic blood pressure 87 mm[Hg] [facility] 01-07-2024 21:03-0400 Heart rate 105 /min [facility] 01-07-2024 21:03-0400 Respiratory rate 16 /min [facility] 01-07-2024 21:03-0400 SaO2% (BldA) [Mass fraction] 98 % [facility] 01-07-2024 21:03-0400 Systolic blood pressure 117 mm[Hg] [facility] 07-20-2023 13:25-0500 Body temperature 98.78 [degF] Edvinnelly Engel [facility] 07-20-2023 13:25-0500 Diastolic blood pressure 83 mm[Hg] Edvin [facility] 07-20-2023 13:25-0500 Heart rate 87 /min Edvin [facility] 07-20-2023 13:25-0500 Respiratory rate 18 /min Edvin Engel [facility] 07-20-2023 13:25-0500 SaO2% (BldA) [Mass fraction] 97 % Edvin Engel [facility] 07-20-2023 13:25-0500 Systolic blood pressure 142 mm[Hg] Edvin Engel [facility] 11-11-2022 14:18-0500 Blood Pressure Location GEO SIDELL [facility] 11-11-2022 14:18-0500 Body temperature 99.5 [degF] GEO SIDELL [facility] 11-11-2022 14:18-0500 Diastolic blood pressure 82 mm[Hg] GEO SIDELL [facility] 11-11-2022 14:18-0500 Heart rate 80 /min GEO SIDELL [facility] 11-11-2022 14:18-0500 Respiratory rate 16 /min GEO SIDELL [facility] 11-11-2022 14:18-0500 Systolic blood pressure 122 mm[Hg] GEO SIDELL [facility] 07-22-2022 20:50-0500 Blood Pressure Location Kadeem [facility] 07-22-2022 20:50-0500 Diastolic blood pressure 75 mm[Hg] Kaylinn Dokken [facility] 07-22-2022 20:50-0500 Heart rate 80 /min Kaylinn Dokken [facility] 07-22-2022 20:50-0500 Mean blood pressure 85 mm[Hg] Kaylinn Dokken [facility] 07-22-2022 20:50-0500 Respiratory rate 18 /min Kaylinn Dokken [facility] 07-22-2022 20:50-0500 SaO2% (BldA) [Mass fraction] 99 % Kaylinn Dokken [facility] 07-22-2022 20:50-0500 Systolic blood pressure 104 mm[Hg] Kaylinn Dokken [facility] 07-22-2022 19:41-0500 Blood Pressure Location Kaylinn Dokken [facility] 07-22-2022 19:41-0500 Diastolic blood pressure 69 mm[Hg] Kaylinn Dokken [facility] 07-22-2022 19:41-0500 Heart rate 69 /min Kaylinn Dokken [facility] 07-22-2022 19:41-0500 Mean blood pressure 82 mm[Hg] Kaylinn Dokken [facility] 07-22-2022 19:41-0500 Respiratory rate 18 /min Kaylinn Dokken [facility] 07-22-2022 19:41-0500 SaO2% (BldA) [Mass fraction] 96 % Kaylinn Dokken [facility] 07-22-2022 19:41-0500 Systolic blood pressure 108 mm[Hg] Kaylinn Dokken [facility] 07-22-2022 19:12-0500 Body temperature 97.88 [degF] Kadeem [facility] 07-22-2022 19:12-0500 Diastolic blood pressure 80 mm[Hg] Kyungn Dokken [facility] 07-22-2022 19:12-0500 Heart rate 76 /[facility] 07-22-2022 19:12-0500 Respiratory rate 18 /min Kadeem [facility] 07-22-2022 19:12-0500 SaO2% (BldA) [Mass fraction] 97 % Kadeem [facility] 07-22-2022 19:12-0500 Systolic blood pressure 122 mm[Hg] [facility] Encounters Encounter Date Encounter Type Care Provider Facility Start: 01-07-2024 End: 01-08-2024 Emergency department patient visit Stoney Prescott Facility:[facility] Start: 01-07-2024 End: 01-07-2024 Emergency department patient visit Stoney Prescott [facility] Start: 12-04-2023 End: 12-04-2023 ambulatory LESLIE YVONNE Not Available Start: 11-06-2023 End: 11-06-2023 ambulatory LESLIE YVONNE Not Available Start: 10-09-2023 End: 10-09-2023 ambulatory LESLIE YVONNE Not Available Start: 09-11-2023 End: 09-11-2023 ambulatory LESLIE YVONNE Not Available Start: 08-14-2023 End: 08-14-2023 ambulatory LESLIE YVONNE Not Available Start: 08-05-2023 End: 08-05-2023 ambulatory LESLIE YVONNE Not Available Start: 07-20-2023 End: 07-20-2023 Emergency department patient visit Edvin Engel Facility:[facility] Start: 07-20-2023 End: 07-20-2023 Emergency department patient visit Edvin Engel [facility] Start: 07-04-2023 End: 10-03-2023 ambulatory DO Wilfrid Reilly Facility:[facility] Start: 07-04-2023 End: 07-05-2023 ambulatory Georgie LOYOLA Facility:[facility] Start: 01-17-2023 End: 01-18-2023 ambulatory LESLIE RUSSELL Facility:[facility] Start: 01-17-2023 End: 01-17-2023 Patient encounter procedure LESLIE RUSSELL [facility] Start: 11-11-2022 End: 11-11-2022 Patient encounter procedure GEO Gautam CUEVA [facility] Start: 07-22-2022 End: 07-22-2022 Emergency department patient visit Kadeem [facility] Start: 02-12-2022 End: 02-14-2022 Evaluation and management of inpatient DR GEORGIE LOYOLA Facility:[facility] Start: 01-24-2022 End: 01-24-[address] GEORGIE LOYOLA Facility:[facility] Start: 11-29-2021 End: 11-30-[address] SHARIF ANGLIN Facility:[facility] Start: 11-17-2021 End: 11-18-[address] GEORGIE LOYOLA Facility:[facility] Start: 10-30-2021 End: 10-30-[address] GEORGIE LOYOLA Facility:[facility] Start: 10-04-2021 End: 10-05-[address] GEORGIE LOYOLA Facility:[facility] Start: 09-08-[address] GEORGIE LOYOLA Facility :[facility] Start: 08-10-2021 End: 08-11-[address] GEORGIE LOYOLA Facility:[facility] Start: 03-20-2016 RhD negative Kaylinn Dokken [facility] Procedures Date Procedure Procedure Detail Performing Clinician Start: 02-12-2022 Delivery of Products of Conception, External Approach DR GEORGIE LOYOLA Start: 02-12-2022 Drainage of Amniotic Fluid, Therapeutic from Products of Conception, Via Natural or Artificial Opening DR GEORGIE LOYOLA Start: 02-12-2022 Introduction of Othe r Hormone into Peripheral Vein, Percutaneous Approach DR GEORGIE LOYOLA Start: 02-12-2022 Repair Vulva, Discharge Specialist al Approach DR GEORGIE LOYOLA Extraction of wisdom tooth K aylinn Dokken Immunizations Immunization Date Immunization Notes Care Provider Fa [facility] 07-04-2023 influenza, seasonal, injectable Edvin Toro [facility] 06-28-2022 influenza virus vaccine, unspecified formulation Kaylinn Dokken [facility] Comment on above: Reason for Medicatio n: Prophylaxis 08-16-2020 influenza, seasonal, injectable Kaylinn Dokken [facility] Comment on above: Reason for Medicatio n: Other (see comment) 08-16-2020 tetanus toxoid, reduced diphtheria toxoid, and acellular pertussis vaccine, adsorbed Kaylinn Dokken [facility] Comment on above: Reason for Medicatio n: Other (see comment) 05-10-2016 tetanus toxoid, reduced diphtheria toxoid, and acellular pertussis vaccine, adsorbed Kaylinn Dokken [facility] Comment on above: Reason for Medicatio n: Other (see comment) NEGATED: Highlighted row has not occurred!11-11-2022 influenza virus vaccine, unspecified formulation GEO CUEVA [facility] NEGATED: Highlighted row has not occurred!11-11-2022 SARS-CoV-2 mRNA (estephaniabrielle 5y-11y) vaccine GEO CUEVA [facility] Payers Date Payer Category Payer Unknown [id number] 2.16.84 [id number] 1996 Unknown [id number] 2.16.84 [id number] 1996 Unknown [id number] 2.16.84 [id number] 1996 Unknown [id number] 2.16.84 0.1.280307.3.579.2.593 1996 Unknown [id number] 2.16.84 [id number] 1996 Unknown [id number] 2.16.84 0.1.031273.3.579.2.593 1996 Unknown [id number] 2.16.84 0.1.554202.3.579.2.593 1996 Unknown [id number] 2.16.84 0.1.684453.3.579.2.593 1996 Unknown [id number] 2.16.84 0.1.232189.3.579.2.1259 1996 Unknown [id number] 2.16.84 0.1.828941.3.579.2.1259 1996 Unknown [id number] 2.16.84 0.1.502967.3.579.2.1259 1996 Unknown [id number] 2.16.840 .1.051496.3.579.2.1259 1996 Unknown [id number] 2.16.840 .1.355961.3.579.2.1259 1996 Unknown [id number] 2.16.840 .1.825687.3.579.2.1259 1996 Unknown [id number] 2.16.8 40.1.147364.3.579.2.727 1996 Unknown [id number] 2.16.8 40.1.977908.3.579.2.727 1996 Unknown [id number] 2.16.8 40.1.646646.3.579.2.727 1996 Unknown [id number] 2.16.8 40.1.749981.3.579.2.727 1996 Unknown [id number] 2.16.8 40.1.332556.3.579.2.727 1959 Self-pay 1959 Unknown [id number] 1959 Unknown [id number] 1959 Unknown [id number] Social History Date Type Detail Facility Tobacco Cigarettes [facility] Comment on above: december 2019-smoked 4 cig per day former Tobacco smoking status No Smoking Status Entered [facility] Sex Assigned At Female [facility] Start: 11-11-2022 Tobacco smoking status Ex-smoker (finding) [facility] Comment on above: december 2019-smoked 4 cig per day Tobacco smoking status Smokeless tobacco user within last 30 days [facility] Comment on above: december 2019-smoked 4 cig per day Functional Status Date Assessment Result Facility 01-07-2024 Functional Status N/A [facility] 07-20-2023 Functional Status N/A [facility] 11-11-2022 Functional Status N/A [facility] 07-22-2022 Functional Status N/A [facility] Hospital Discharge instructions 01-08-2024 Note Date & Type Note Facility 01-08-2024 Hospital Discharg e instructions Patient Education 01/07/2024 23:44:37 Abdominal Pain, Adult Abdominal Pain, Adult Pain in the abdomen (abdominal pain) can be caused by many things. Often, abdominal pain is not serious and it gets better with no treatment or by being treated at home. However, sometimes abdominal pain is serious. Your health care provider will ask questions about your medical history and do a physical exam to try to determine the cause of your abdominal pain. Follow these instructions at home: Medicines Take ftcw-mfn-yxrcrtn and prescription medicines only as told by your health care provider. Do not take a laxative unless told by your health care provider. General instructions Watch your condition for any changes. Drink enough fluid to keep your urine pale yellow. Keep all follow-up visits as told by your health care provider. This is important. Contact a health care provider if: Your abdominal pain changes or gets worse. You are not hungry or you lose weight without trying. You are constipated or have diarrhea for more than 2 3 days. You have pain when you urinate or have a bowel movement. Your abdominal pain wakes you up at night. Your pain gets worse with meals, after eating, or with certain foods. You are vomiting and cannot keep anything down. You have a fever. You have blood in your urine. Get help right away if: Your pain does not go away as soon as your health care provider told you to expect. You cannot stop vomiting. Your pain is only in areas of the abdomen, such as the right side or the left lower portion of the abdomen. Pain on the right side could be caused by appendicitis. You have bloody or black stools, or stools that look like tar. You have severe pain, cramping, or bloating in your abdomen. You have signs of dehydration, such as: ?Dark urine, very little urine, or no urine. ?Cracked lips. ?Dry mouth. ?Sunken eyes. ?Sleepiness. ?Weakness. You have trouble breathing or chest pain. Summary Often, abdominal pain is not serious and it gets better with no treatment or by being treated at home. However, sometimes abdominal pain is serious. Watch your condition for any changes. Take xsci-pqh-dwfdypz and prescription medicines only as told by your health care provider. Contact a health care provider if your abdominal pain changes or gets worse. Get help right away if you have severe pain, cramping, or bloating in your abdomen. This information is not intended to replace advice given to you by your health care provider. Make sure you discuss any questions you have with your health care provider. Document Revised: 10/14/2020 Document Reviewed: 01/04/2020 [employer] Patient Education 2022 [employer] Follow Up Care 01/07/2024 20:56:43 With:Leslie Lake Address: [address] [place] [phone] Business (1) When:Within 3 Day(s) [facility] Evaluation + Plan note 01-07-2024 Note Date & Type Note Facility 01-07-2024 Evaluation + Plan note Extrac hawa from: Title:ED Note Author:Stoney Prescott DO Date :01/07/24 AP (abdominal pain) (R10.9: Unspecified abdominal pain) Orders: ketorolac, 15 mg = 1 mL, Injection, IV Push, Once, Stop date 01/07/24 21:17:00 EDT, STAT, Start date 01/07/24 21:17:00 EDT, 01/07/24 21:17:00 EDT ketorolac, 15 mg = 1 mL, Injection, IV Push, Once, Stop date 01/07/24 23:34:00 EDT, STAT, Start date 01/07/24 23:34:00 EDT, 01/07/24 23:34:00 EDT ondansetron, 4 mg = 2 mL, Injection, IV Push, Once, Stop date 01/07/24 21:17:00 EDT, STAT, Start date 01/07/24 21:17:00 EDT, 01/07/24 21:17:00 EDT Sodium Chloride 0.9% intravenous solution, 1,000 mL, Soln-IV, IV, Once, Stop date 01/07/24 21:17:00 EDT, STAT, Start date 01/07/24 21:17:00 EDT, Infuse over 61, minute(s) Basic Metabolic Panel CBC w/ Auto Diff CT Abdomen/Pelvis w/ Contrast eGFR Extra Blue Tube Hepatic Function Panel Lipase Level Saline Lock Insert U Beta Hcg Qual UA with Cult Rflx Urine Culture Diagnostic Tests Pending * Urine Culture 01/07/24 [facility] Hospital Discharge instructions 07-20-2023 Note Date & Type Note Facility 07-20-2023 Hospital Discharg e instructions Patient Education 07/20/2023 15:35:45 Acute Bronchitis, Adult, Cpfm-gw-Hplq Acute Bronchitis, Adult Acute bronchitis is when air tubes in the lungs (bronchi) suddenly get swollen. The condition can make it hard for you to breathe. In adults, acute bronchitis usually goes away within 2 weeks. A cough caused by bronchitis may last up to 3 weeks. Smoking, allergies, and asthma can make the condition worse. What are the causes? Germs that cause cold and flu (viruses). The most common cause of this condition is the virus that causes the common cold. Bacteria. Substances that bother (irritate) the lungs, including: ?Smoke from cigarettes and other types of tobacco. ?Dust and pollen. ?Fumes from chemicals, gases, or burned fuel. ?Indoor or outdoor air pollution. What increases the risk? A weak body's defense system. This is also called the immune system. Any condition that affects your lungs and breathing, such as asthma. What are the signs or symptoms? A cough. Coughing up clear, yellow, or green mucus. Making high-pitched whistling sounds when you breathe, most often when you breathe out (wheezing). Runny or stuffy nose. Having too much mucus in your lungs (chest congestion). Shortness of breath. Body aches. A sore throat. How is this treated? Acute bronchitis may go away over time without treatment. Your doctor may tell you to: Drink more fluids. This will help thin your mucus so it is easier to cough up. Use a device that gets medicine into your lungs (inhaler). Use a vaporizer or a humidifier. These are machines that add water to the air. This helps with coughing and poor breathing. Take a medicine that thins mucus and helps clear it from your lungs. Take a medicine that prevents or stops coughing. It is not common to take an antibiotic medicine for this condition. Follow these instructions at home: Take jion-fry-swtgots and prescription medicines only as told by your doctor. Use an inhaler, vaporizer, or humidifier as told by your doctor. Take two teaspoons (10 mL) of honey at bedtime. This helps lessen your coughing at night. Drink enough fluid to keep your pee (urine) pale yellow. Do not smoke or use any products that contain nicotine or tobacco. If you need help quitting, ask your doctor. Get a lot of rest. Return to your normal activities when your doctor says that it is safe. Keep all follow-up visits. How is this prevented? Wash your hands often with soap and water for at least 20 seconds. If you cannot use soap and water, use hand supervisor machine workers. Avoid contact with people who have cold symptoms. Try not to touch your mouth, nose, or eyes with your hands. Avoid breathing in smoke or chemical fumes. Make sure to get the flu shot every year. Contact a doctor if: Your symptoms do not get better in 2 weeks. You have trouble coughing up the mucus. Your cough keeps you awake at night. You have a fever. Get help right away if: You cough up blood. You have chest pain. You have very bad shortness of breath. You faint or keep feeling like you are going to faint. You have a very bad headache. Your fever or chills get worse. These symptoms may be an emergency. Get help right away. Call your local emergency services (911 in the [place] Do not wait to see if the symptoms will go away. Do not drive yourself to the hospital. Summary Acute bronchitis is when air tubes in the lungs (bronchi) suddenly get swollen. In adults, acute bronchitis usually goes away within 2 weeks. Drink more fluids. This will help thin your mucus so it is easier to cough up. Take evzc-xtb-bmahnek and prescription medicines only as told by your doctor. Contact a doctor if your symptoms do not improve after 2 weeks of treatment. This information is not intended to replace advice given to you by your health care provider. Make sure you discuss any questions you have with your health care provider. Document Revised: 12/27/2021 Document Reviewed: 12/27/2021 [employer] Patient Education 2022 [employer]. Follow Up Care 07/20/2023 13:14:53 With:Leslie Lake Address: [facility] [address] [place] , [facility] [address] [place] [address] [facility] (1) When:07/23/2023 15:18:00 Comments:Follow-up with your primary care provider in 3 to 5 days. If symptoms worsen, do not improve, or new symptoms arise please report back to emergency department for further evaluation. [facility] Evaluation + Plan note 07-20-2023 Note Date & Type Note Facility 07-20-2023 Evaluation + Plan note Extrac hawa from: Title:ED Note Author:Rajiv HALE, Geraldo Fowler te:07/20/23 Bronchitis (J40: Bronchitis, not specified as acute or chronic) Orders: brompheniramine/dextromethorphan/PSE, 5 mL, Oral, QID for cold symptoms, 200 mL, Refill(s) 0, [facility], 162, cm, 07/20/23 13:30:00 EST, Height/Length Dosing, 89.7, kg, 07/20/23 13:30:00 EST, Weight Dosing predniSONE, 50 mg = 1 tab(s), Oral, Daily, X 7 day(s), # 7 tab(s), Refills(s) 0, [facility], 162, cm, 07/20/23 13:30:00 EST, Height/Length Dosing, 89.7, kg, 07/20/23 13:30:00 EST, Weight Dosing [facility] Evaluation + Plan note 01-17-2023 Note Date & Type Note Facility 01-17-2023 Evaluation + Plan note Diagnostic Tests PendingT3 Free 01/17/23 [facility] Hospital Discharge instructions 07-22-2022 Note Date & Type Note Facility 07-22-2022 Hospital Discharg e instructions Patient Education 07/22/2022 21:15:38 Nausea, Adult, Qoqt-uw-Aliw Nausea, Adult Nausea is feeling sick to your stomach or feeling that you are about to throw up (vomit). Feeling sick to your stomach is usually not serious, but it may be an early sign of a more serious medical problem. As you feel sicker to your stomach, you may throw up. If you throw up, or if you are not able to drink enough fluids, there is a risk that you may lose too much water in your body (get dehydrated). If you lose too much water in your body, you may: Feel tired. Feel thirsty. Have a dry mouth. Have cracked lips. Go pee (urinate) less often. Older adults and people who have other diseases or a weak body defense system (immune system) have a higher risk of losing too much water in the body. The main goals of treating this condition are: To relieve your nausea. To ensure your nausea occurs less often. To prevent throwing up and losing too much fluid. Follow these instructions at home: Watch your symptoms for any changes. Tell your doctor about them. Follow these instructions as told by your doctor. Eating and drinking Take an ORS (oral rehydration solution). This is a drink that is sold at pharmacies and stores. Drink clear fluids in small amounts as you are able. These include: ?Water. ?Ice chips. ?Fruit juice that has water added (diluted fruit juice). ?Low-calorie sports drinks. Eat bland, ciza-ur-rcfnrs foods in small amounts as you are able, such as: ?Bananas. ?Applesauce. ?Rice. ?Low-fat (lean) meats. ?[place]. ?Crackers. Avoid drinking fluids that have a lot of sugar or caffeine in them. This includes energy drinks, sports drinks, and soda. Avoid alcohol. Avoid spicy or fatty foods. General instructions Take wxkr-ocm-wzkgyic and prescription medicines only as told by your doctor. Rest at home while you get better. Drink enough fluid to keep your pee (urine) pale yellow. Take slow and deep breaths when you feel sick to your stomach. Avoid food or things that have strong smells. Wash your hands often with soap and water. If you cannot use soap and water, use hand supervisor machine workers. Make sure that all people in your home wash their hands well and often. Keep all follow-up visits as told by your doctor. This is important. Contact a doctor if: You feel sicker to your stomach. You feel sick to your stomach for more than 2 days. You throw up. You are not able to drink fluids without throwing up. You have new symptoms. You have a fever. You have a headache. You have muscle cramps. You have a rash. You have pain while peeing. You feel light-headed or dizzy. Get help right away if: You have pain in your chest, neck, arm, or jaw. You feel very weak or you pass out (faint). You have throw up that is bright red or looks like coffee grounds. You have bloody or black poop (stools) or poop that looks like tar. You have a very bad headache, a stiff neck, or both. You have very bad pain, cramping, or bloating in your belly (abdomen). You have trouble breathing or you are breathing very quickly. Your heart is beating very quickly. Your skin feels cold and clammy. You feel confused. You have signs of losing too much water in your body, such as: ?Dark pee, very little pee, or no pee. ?Cracked lips. ?Dry mouth. ?Sunken eyes. ?Sleepiness. ?Weakness. These symptoms may be an emergency. Do not wait to see if the symptoms will go away. Get medical help right away. Call your local emergency services (911 in the [place] Do not drive yourself to the hospital. Summary Nausea is feeling sick to your stomach or feeling that you are about to throw up (vomit). If you throw up, or if you are not able to drink enough fluids, there is a risk that you may lose too much water in your body (get dehydrated). Eat and drink what your doctor tells you. Take sivm-zfv-caoncdf and prescription medicines only as told by your doctor. Contact a doctor right away if your symptoms get worse or you have new symptoms. Keep all follow-up visits as told by your doctor. This is important. This information is not intended to replace advice given to you by your health care provider. Make sure you discuss any questions you have with your health care provider. Document Released: 08/14/2012 Document Revised: 02/03/2019 Document Reviewed: 02/03/2019 [employer] Patient Education 2020 [employer]. 07/22/2022 21:15:38 Migraine Headache, Ijig-vc-Ntxs Migraine Headache A migraine headache is a very strong throbbing pain on one side or both sides of your head. This type of headache can also cause other symptoms. It can last from 4 hours to 3 days. Talk with your doctor about what things may bring on (trigger) this condition. What are the causes? The exact cause of this condition is not known. This condition may be triggered or caused by: Drinking alcohol. Smoking. Taking medicines, such as: ?Medicine used to treat chest pain (nitroglycerin). ? control pills. ?Estrogen. ?Some blood pressure medicines. Eating or drinking certain products. Doing physical activity. Other things that may trigger a migraine headache include: Having a menstrual period. . Hunger. Stress. Not getting enough sleep or getting too much sleep. Weather changes. Tiredness (fatigue). What increases the risk? Being [age] years old. Being female. Having a family history of migraine headaches. Being . Having depression or anxiety. Being very overweight. What are the signs or symptoms? A throbbing pain. This pain may: ?Happen in any area of the head, such as on one side or both sides. ?Make it hard to do daily activities. ?Get worse with physical activity. ?Get worse around bright lights or loud noises. Other symptoms may include: ?Feeling sick to your stomach (nauseous). ?Vomiting. ?Dizziness. ?Being sensitive to bright lights, loud noises, or smells. Before you get a migraine headache, you may get warning signs (an aura). An aura may include: ?Seeing flashing lights or having blind spots. ?Seeing bright spots, halos, or zigzag lines. ?Having tunnel vision or blurred vision. ?Having numbness or a tingling feeling. ?Having trouble talking. ?Having weak muscles. Some people have symptoms after a migraine headache (postdromal phase), such as: ?Tiredness. ?Trouble thinking (concentrating). How is this treated? Taking medicines that: ?Relieve pain. ?Relieve the feeling of being sick to your stomach. ?Prevent migraine headaches. Treatment may also include: ?Having acupuncture. ?Avoiding foods that bring on migraine headaches. ?Learning ways to control your body functions (biofeedback). ?Therapy to help you know and deal with negative thoughts (cognitive behavioral therapy). Follow these instructions at home: Medicines Take sljj-crl-qywlzsf and prescription medicines only as told by your doctor. Ask your doctor if the medicine prescribed to you: ?Requires you to avoid driving or using heavy machinery. ?Can cause trouble pooping (constipation). You may need to take these steps to prevent or treat trouble pooping: ?Drink enough fluid to keep your pee (urine) pale yellow. ?Take uprs-wik-isbyilp or prescription medicines. ?Eat foods that are high in fiber. These include beans, whole grains, and fresh fruits and vegetables. ?Limit foods that are high in fat and sugar. These include fried or sweet foods. Lifestyle Do not drink alcohol. Do not use any products that contain nicotine or tobacco, such as cigarettes, e-cigarettes, and chewing tobacco. If you need help quitting, ask your doctor. Get at least 8 hours of sleep every night. Limit and deal with stress. General instructions Keep a journal to find out what may bring on your migraine headaches. For example, write down: ?What you eat and drink. ?How much sleep you get. ?Any change in what you eat or drink. ?Any change in your medicines. If you have a migraine headache: ?Avoid things that make your symptoms worse, such as bright lights. ?It may help to lie down in a dark, quiet room. ?Do not drive or use heavy machinery. ?Ask your doctor what activities are safe for you. Keep all follow-up visits as told by your doctor. This is important. Contact a doctor if: You get a migraine headache that is different or worse than others you have had. You have more than 15 headache days in one month. Get help right away if: Your migraine headache gets very bad. Your migraine headache lasts longer than 72 hours. You have a fever. You have a stiff neck. You have trouble seeing. Your muscles feel weak or like you cannot control them. You start to lose your balance a lot. You start to have trouble walking. You pass out (faint). You have a seizure. Summary A migraine headache is a very strong throbbing pain on one side or both sides of your head. These headaches can also cause other symptoms. This condition may be treated with medicines and changes to your lifestyle. Keep a journal to find out what may bring on your migraine headaches. Contact a doctor if you get a migraine headache that is different or worse than others you have had. Contact your doctor if you have more than 15 headache days in a month. This information is not intended to replace advice given to you by your health care provider. Make sure you discuss any questions you have with your health care provider. Document Released: 06/04/2009 Document Revised: 12/18/2019 Document Reviewed: 10/08/2019 [employer] Patient Education 2020 [employer] Follow Up Care 07/22/2022 19:07:53 With:Leslie Lake Address: [address] [place] [address]- Business (1) When:07/25/2022 21:08:56 [facility] Evaluation + Plan note Note Date & Type Note Facility Evaluation + Plan note No data available for this section [facility] Hospital Discharge instructions Note Date & Type Note Facility Hospital Discharge instructions No data available for this section [facility] Progress note Note Date & Type Note Facility Progress note No data available for this section [facility] Summary Purpose Family History No Family History Records Found No data available for this section No Family History Records Found No data available for this section No Family History Records Found Advance Directives No Advanced Directives Records FoundNo Advanced Directives Records FoundNo Advanced Directives Records Found Additional Source Comments INFORMATION SOURCE (unrecogn ized section and content) DATE CREATED AUTHOR 02/22/2022 [facility] DATE CREATED AUTHOR AUTHOR'S ORGANIZ ATION 12/05/2023 [facility] EPIC DATE CREATED AUTHOR AUTHOR'S ORGANIZ ATION 01/10/2024 [facility] Patient Care team informatio n (unrecognized section and content) Personnel Name: LakeLeslie franco DO Address: Address: [facility] [address] Personnel Name: Jaya Leslie ARTEAGA Address: Address: [facility] [address] Personnel Name: [place] Leslie ARTEAGA Address: Address: [facility] [address] Personnel Name: [place] Leslie ARTEAGA Address: Address: [facility] [address] Personnel Name: Jaya Leslie ARTEAGA Address: Address: [facility] Raymundo Maria Bllauren [address] FOR RECORDS PERTAINING TO PATIENTS WHO ARE OR HAVE BEEN ENROLLED IN A CHEMICAL DEPENDENCY/SUBSTANCEABUSE PROGRAM, SOME INFORMATION MAY BE OMITTED. This clinical summary was aggregated from multiple sources. Caution should be exercised in using it in the provision of clinical care. This summary normalizes information from multiple sources, and as a consequence, information in this document may materially change the coding, format and clinical context of patient data. In addition, data may be omitted in some cases. CLINICAL DECISIONS SHOULD BE BASED ON THE PRIMARY CLINICAL RECORDS. [employer] [facility]. provides no warranty or guarantee of the accuracy or completeness of information in this document.
[2024-05-03 00:26] LABS: HCG Qualitative Urine* NEGATIVE (NEGATIVE); Internal Control Within Normal Limits
[2024-05-03 00:31] LABS: Clarity Urine CLEAR (CLEAR); Color Urine DK. ORANGE (YELLOW); Protein Urine COLOR INTERFERENCE mg/dL (NEG/TRACE); Specific Gravity Urine 1.025 (1.005-1.025); pH Urine COLOR INTERFERENCE (5.0-9.0)
[2024-05-03 00:32] LABS: Bilirubin Urine COLOR INTERFERENCE (NEGATIVE); Blood Urine COLOR INTERFERENCE (NEGATIVE); Glucose Urine UA COLOR INTERFERENCE mg/dL (NEGATIVE); Ketones Urine COLOR INTERFERENCE mg/dL (NEGATIVE); Leukocyte Esterase Urine COLOR INTERFERENCE (NEGATIVE); Nitrite Urine COLOR INTERFERENCE (NEGATIVE); Urine Microscopic Indicated YES; Urobilinogen Urine COLOR INTERFERENCE EU/dL (0.2-1.0)
[2024-05-03 00:40] LABS: Bacteria Urine NONE SEEN #/HPF (NONE SEEN); Mucus Urine NONE SEEN (NONE SEEN); RBC Urine 50-75 #/HPF (0-2)
[2024-05-03 00:41] LABS: Cast Seen? NONE SEEN #/LPF (NONE SEEN); Crystals Seen? None Seen #/HPF (None Seen); Squamous Epithelial Cell Urine FEW #/LPF (NONE/RARE); Transitional Epi Cells Urine RARE #/LPF (NONE SEEN); Urine Culture Indicated YES
[2024-05-03] MEDS: CEPHALEXIN 500 MG CAPSULE PO (01:07)
--- NOTE | 2024-05-03 01:07 | ED_ITS ---
HPI HPI - General Adult General Chief complaint: Urogenital-Female Stated complaint: uti Time Seen by Provider: 05/03/24 00:03 Source: patient Mode of arrival: walk-in Limitations: no limitations History of Present Illness HPI narrative: 28-year-old female to the emergency department chief complaint of dysuria, urgency, frequency that began yesterday. Symptoms are similar to previous uri nary tract infections. She denies . She denies any fever, sweats, chills, flank pain. No nausea or vomiting. She reports she took some Azo tonight as well as some ibuprofen which got her some relief. She is concerned about urinary tract infection. Related Data Home Medications ?Medication ?Instructions ?Recorded ?Confirmed atomoxetine 40 mg capsule 40 mg PO DAILY 05/02/24 05/02/24 clonidine HCl 0.1 mg tablet 0.1 mg PO DAILY 05/02/24 05/02/24 Previous Rx's ?Medication ?Instructions ?Recorded cephalexin 500 mg capsule 500 mg PO BID 5 days #10 caps 05/03/24 Allergies Allergy/AdvReac Type Severity Reaction Status Date / Time No Known Drug Allergies Allergy Verified 05/02/24 23:56 Opioid HPI Opioid Management Most Recent Opioid Data: No Data to Display Review of Systems ROS Status of ROS 10 or more systems reviewed and unremark able except as noted in history and below Exam Narrative Exam Narrative: VITALS: I have reviewed the triage vital signs. GENERAL: Well developed, well appearing adult in no acute distress. NEURO: Alert and oriented. Moves all extremities. Face is symmetric and expressive. EYES: PERRL. No scleral icterus or conjunctival injection. No discharge. HENT: Normocephalic, atraumatic. Hearing is grossly intact. Nares grossly patent and without discharge. Mucous membranes moist. NECK: No JVD. Patient moves neck without restriction. GI/: Abdomen is soft and non-tender. Normoactive bowel sounds. EXTREMITIES: Symmetric muscle bulk. No joint swelling. No clubbing, cyanosis, or deformity. SKIN: Warm and dry. Normal turgor. No rash or lesions appreciated. PSYCH: Mood, affect, and interaction is appropriate to the setting. Constitutional Vital Signs, click to edit/add: Last Vital Signs Temp 98.1 F 05/02/24 23:53 Pulse 92 H 05/02/24 23:53 Resp 16 05/02/24 23:53 BP 120/87 05/02/24 23:53 Pulse Ox 98 05/02/24 23:53 O2 Del Method Room Air 05/02/24 23:53 Course Vital Signs Vital signs: Vital Signs Temperature 98.1 F 05/02/24 23:53 Pulse Rate 92 H 05/02/24 23:53 Respiratory Rate 16 05/02/24 23:53 Blood Pressure 120/87 05/02/24 23:53 Pulse Oximetry 98 05/02/24 23:53 Oxygen Delivery Method Room Air 05/02/24 23:53 Temperature 98.1 F 05/02/24 23:53 Pulse Rate 92 H 05/02/24 23:53 Respiratory Rate 16 05/02/24 23:53 Blood Pressure 120/87 05/02/24 23:53 Pulse Oximetry 98 05/02/24 23:53 Oxygen Delivery Method Room Air 05/02/24 23:53 Medical Decision Making MDM Narrative Medical decision making narrative: 28-year-old female to the emergency department with chief complaint of UTI sym ptoms. Vital stable, the patient is afebrile. Her abdominal examination is benign. She took Azo and ibuprofen prior to arrival. Urinalysis dip is limited due to the Azo. Microscopy was some white blood cells. Urine culture was sent. Given his symptoms and abnormal urine we will treat with Keflex. First dose is given in the ER. I recommended continued use of Azo, Tylenol, ibuprofen for symptoms. Return precautions were discussed. All questions were answered. Patient agrees with this plan. The patient was discharged home. Medical Records Medical records reviewed: Yes I reviewed the patient's medical records Lab Data Lab results reviewed: Yes I reviewed the patient's lab results Labs: Lab Results 05/03/24 Range/Units 00:15 Urine Color Dk. orange (YELLOW) Urine Clarity Clear (CLEAR) Urine pH Color interference A (5.0-9.0) Ur Specific [place] 1.025 (1.005-1.025) Urine Protein Color interference A (NEG/TRACE) mg/dL Urine Glucose (UA) Color interference A (NEGATIVE) mg/dL Urine Ketones Color interference A (NEGATIVE) mg/dL Urine Occult Blood Color interference A (NEGATIVE) Urine Nitrite Color interference A (NEGATIVE) Urine Bilirubin Color interference A (NEGATIVE) Urine Urobilinogen Color interference A (0.2-1.0) EU/dL Ur Leukocyte Esterase Color interference A (NEGATIVE) Urine RBC 50-75 A (0-2) #/HPF Urine WBC 5-10 A (NONE SEEN) #/HPF Ur Squamous Epith Cells Few A (NONE/RARE) #/LPF Ur Transition Epith Cell Rare A (NONE SEEN) #/LPF Urine Crystals None seen (None Seen) #/HPF Urine Bacteria None seen (NONE SEEN) #/HPF Urine Casts None seen (NONE SEEN) #/LPF Urine Mucus None seen (NONE SEEN) Ur Culture Indicated? Yes Urine HCG, Qual Negative (NEGATIVE) Discharge Plan Discharge Stand Alone Forms: Work/School Release, Portal Instructions Chief Complaint: Urogenital-Female Clinical Impression: Urinary tract infection Patient Disposition: Home, Self-Care Time of Disposition Decision: 00:46 Condition: Good Mode of Transportation: Private Vehicle Prescriptions / Home Meds: New cephalexin 500 mg capsule 500 mg PO BID 5 Days Qty: 10 0RF No Action atomoxetine 40 mg capsule 40 mg PO DAILY clonidine HCl 0.1 mg tablet 0.1 mg PO DAILY Rx Instructions: HS Print Language: Nauruan Instructions: Urinary Tract Infection in Women (ED) Additional Instructions: Call the office of your primary care doctor to arrange for follow-up within the above-stated timeframe. Your ED visit was focused on your acute issue and does not replace primary care. You should review your labs, imaging, and diagnoses from this ED visit with your primary care physician. There may be non-emergent/ incidental findings that need further evaluation. You should review your vital signs including blood pressure with your PCP. If you were prescribed medications you should discuss possible side-effects and drug interactions with your pharmacist. Call 911 or go to the nearest Emergency Department if you develop any new or worsening symptoms. Seek immediate medical attention if you develop: worsening abdominal pain, new or worsening nausea, new or worsening vomiting, new or worsening diarrhea, chest pain, shortness of breath, pain with urination, problems urinating, fever, chills, weakness, or any new or worsening symptoms. Referrals: Physician,Non-Staff, MD [Primary Care Provider] - 1 week
== END 2024-05-03 01:12 | disposition home or self-care (01) ==
PROVIDERS: Emergency Provider Student in an Organized Health Care Education/Training Program
DX: N39.0 Urinary tract infection, site not specified (principal); Z87.440 Personal history of urinary (tract) infections
CPT/HCPCS: 81001; 84703; 87086; 87186; 99283

== ENCOUNTER 2025-08-23 09:45 | Outpatient (OUT) | payer OTHER, SELFPAY | END 2025-08-23 09:46 | disposition home or self-care (01) | LOC: LAB 09:46 | PROVIDERS: Visit Provider Nurse Practitioner Family | DX: Z30.02 Counseling and instruction in natural family planning to avoid pregnancy (principal) | CPT/HCPCS: 36415; 84702 ==

== ENCOUNTER 2025-08-23 12:56 | Outpatient (REF) | payer OTHER, SELFPAY ==
[2025-08-25 14:12] LABS: Age Gdln ACOG Testing Note (.); IGP, rfx Aptima HPV ASCU Note (.)
== END 2025-08-23 12:57 | disposition home or self-care (01) ==
LOC: LAB 12:56
PROVIDERS: Visit Provider Obstetrics & Gynecology
DX: Z01.419 Encounter for gynecological examination (general) (routine) without abnormal findings (principal); Z30.02 Counseling and instruction in natural family planning to avoid pregnancy
CPT/HCPCS: 36415; 84702; 88175